=== PATIENT | female | born 1965 | race Caucasian/White ===

== ENCOUNTER → 2019-03-09 | Outpatient (CLI) | payer MEDICARE, OTHER ==
--- NOTE | 2019-03-14 13:39 | MR ---
MRI liver without and with contrast, MRCP HISTORY: Abnormal radiology exam Multiplanar multisequence and postcontrast images obtained through the abdomen following 10.5 cc gado linium intravenously. Three-dimensional reconstructions performed through the biliary system. It is n ot seen on MRI. There is no filling defect to suggest choledocholithiasis. Correlation to ultrasound abdomen dated 12/14/2018, CT chest 10/18/2010 The abnormality seen on ultrasound corresponds to a right adrenal mass measuring approximately 2.8 cm in greatest dimension and was seen on prior CT dated 10/18/2010. There is loss of signal on out of pha se imaging compatible with adrenal adenoma. The abnormality seen within the bile duct on ultrasound. Gallbladder is absent. Common bile duct is somewhat tortuous. Common bile duct is dilated likely due to postcholecystectomy change, susceptibili ty artifact is present due to surgical clips. There is no abnormal enhancement following contrast adm inistration. Pancreas, left adrenal gland, kidneys, and spleen are normal. No retroperitoneal adenopa thy. Aorta shows normal caliber. There is no ascites. IMPRESSION: Right adrenal adenoma. Suspect the findings on ultrasound in the region of the jose adrianna factual, no luminal filling defect seen on MRCP. Postop changes.
== END | disposition home or self-care (01) ==
LOC: RADMRIMAIN 08:07
PROVIDERS: ATTEND Internal Medicine Gastroenterology
DX: D35.01 Benign neoplasm of right adrenal gland (principal); Z98.890 Other specified postprocedural states
CPT/HCPCS: 74183; A9585

== ENCOUNTER → 2020-05-06 | Outpatient (CLI) | payer MEDICARE, OTHER ==
--- NOTE | 2020-05-06 13:27 | MR ---
EXAMINATION TYPE: MR knee LT wo con DATE OF EXAM: 05/06/2020 COMPARISON: Plain film 12/15/2019 HISTORY: L knee pain TECHNIQUE: Multiplanar, multisequence imaging of the left knee is performed without IV contrast. FINDINGS: MEDIAL MENISCUS: There is some abnormal increased signal within the posterior horn of the medial meni scus, question communication with the articular surface on sagittal image 24 LATERAL MENISCUS: Anterior and posterior horns are intact without tear. CRUCIATE LIGAMENTS: The anterior and posterior cruciate ligaments are intact and unremarkable. COLLATERAL LIGAMENTS: The medial collateral ligament and lateral collateral ligament complex are inta ct and unremarkable. EXTENSOR MECHANISM: Visualized quadriceps and patellar tendons are intact. EFFUSION: Suprapatellar joint effusion is present. POPLITEAL CYST: No popliteal/foote cyst. TRICOMPARTMENT SPACES: Maintained CARTILAGE: Grade 2 to grade III chondromalacia at the posterior patella. Suspect some grade II chondr omalacia medial compartment BONE MARROW SIGNAL: No focal abnormal marrow signal is appreciated. OTHER: There is clustered grapes type focus at the posterior aspect of the proximal tibia present mi dline, increased 2 to and T1 signal with some mild internal septation, heterogeneity, overall the les ion measures approximately 2.6 x 1.5 x 1.4 cm IMPRESSION: Osteoarthritis. Possible ganglion cyst posterior knee joint. There is some abnormal signal within the posterior horn the medial meniscus as described, difficult to exclude tear although findings suggest mucoid degeneration.
== END ==
LOC: RADMRIMAIN 12:05
PROVIDERS: ATTEND Orthopaedic Surgery
DX: M17.12 Unilateral primary osteoarthritis, left knee (principal); R93.7 Abnormal findings on diagnostic imaging of other parts of musculoskeletal system

== ENCOUNTER → 2020-06-08 | Outpatient (CLI) | payer MEDICARE, OTHER ==
--- NOTE | 2020-06-08 11:08 | MR ---
EXAMINATION TYPE: MR shoulder LT wo con DATE OF EXAM: 06/08/2020 10:35 AM COMPARISON: NONE HISTORY: LEFT SHOULDER PAIN TECHNIQUE: Multiplanar multispin echo imaging of the left shoulder was performed. FINDINGS: Rotator cuff : There is no complete or bursal/articular sided partial rotator cuff tear. The subscapu maryjane constituent of the rotator cuff is intact. Bursa: No bursal effusion or thickening is seen. Musculature: There is heterogeneity and thickening of the supraspinatus tendon compatible chronic ten dinopathy. Partial intrasubstance tears are noted without evidence for full-thickness tear. Remaining constituents of the rotator cuff are intact. Acromioclavicular joint : Moderate AC joint arthropathy with subacromial spurring resulting in modera te impingement. Osseous structures : There are no fractures or regions of abnormal bone marrow signal intensity. Long biceps tendon : The biceps tendon is normally situated within the bicipital groove. No complete or partial biceps tendon tear is present. Glenohumeral Joint fluid : There is no glenohumeral joint effusion. Cartilage and Bone : No focal hyaline cartilage defects are noted. No Hill-Sachs, reverse Hill-Sachs, or bony Bankart lesions are seen. Labrum : There are no SLAP or soft tissue Bankart lesions. No paralabral cysts are seen. OTHER FINDINGS : Fluid collection noted within the subcoracoid region measures approximately 3.4 x 2. 9 cm and could reflect a ganglion cyst. IMPRESSION: 1. There is heterogeneity and thickening of the supraspinatus tendon compatible chronic tendinopathy. Partial intrasubstance tears are noted without evidence for full-thickness tear. 2. Moderate subacromial impingement. 3. Subcoracoid fluid collection versus ganglion cyst.
== END | disposition home or self-care (01) ==
LOC: RADMRIMAIN 09:52
PROVIDERS: ATTEND Orthopaedic Surgery
DX: M25.812 Other specified joint disorders, left shoulder (principal)

== ENCOUNTER → 2020-09-13 | Day surgery (SDC) | payer MEDICARE, OTHER ==
[2020-09-09 16:05] VITALS: BMI 35.7
--- NOTE | 2020-09-12 21:30 | HP ---
HISTORY AND PHYSICAL CHIEF COMPLAINT: Left knee pain. HISTORY OF PRESENT ILLNESS: The patient is a 54-year-old female who presents with progressive left knee pain for the past several months. She is having stiffness and pain along with intermittent giving way. She is ambulating with a cane. She has tried medications, home exercises, and steroid injections without much relief. She notes it bothers her normal function and limits her activities. PAST MEDICAL HISTORY: Significant for arthritis, hypertension, hypercholesterolemia, heart disease, previous CVA, depression. PAST SURGICAL HISTORY: Significant for gallbladder removal, previous knee replacement, previous hip replacement, tonsillectomy. CURRENT MEDICATIONS: Aspirin, albuterol, Lopressor, Neurontin, Percocet, simvastatin, and trazodone. ALLERGIES: SHE HAS ALLERGIES TO PENICILLIN, IV CONTRAST DYE AND FLAGYL. FAMILY HISTORY: Significant for cancer. SOCIAL HISTORY: Negative for current tobacco or alcohol use. 16 POINT REVIEW OF SYSTEMS: Otherwise reviewed and is noncontributory. PHYSICAL EXAMINATION: On examination, the patient is approximately 5 foot 8, 235 pounds, endomorphic habitus. HEENT exam is nonfocal. NECK: Supple. She has painless passive motion of left hip. Straight leg raise is negative. Active motion left knee -10 to 110 degrees of flexion. She has a mild effusion. She is tender about the medial joint line. No lateral joint line. Collaterals are stable, Cristina is negative, Sima's elicits medial and lateral pain. Her distal neurovascular appears intact in the left lower extremity. IMPRESSION: 1. Left knee moderate medial compartment osteoarthrosis. 2. Left knee internal derangement, possible medial meniscal tear. RECOMMENDATIONS: I talked to the patient at length regarding her condition and treatment options. At this point, she remains quite symptomatic with pain and mechanical symptoms despite previous conservative measures. After thorough discussion, she opts to proceed with surgery. We will plan to proceed with left knee arthroscopy with possible partial medial meniscectomy. We will likely perform that as an outpatient procedure. MMODL / IJN: [id number] /
[~2020-09-13] MED LIST: CLINDAMYCIN 900 MG in DEXTROSE 5% IN WATER 50 ML IVPB PRN; DEXAMETHASONE SOD PHOSPHATE 4 MG/ML 1 ML VIAL IV ONE; EPINEPHRINE IRRIGATION ONE; EPINEPHrine (PF) 1 ML in SODIUM CHLORIDE 0.9% IRRIGATIO 3,000 ML IRRIGATION ONE; KETOROLAC 15 MG/ML 1 ML VIAL ONE; LACTATED RINGERS 1,000 ML IV SCH; LIDOCAINE 1% (10MG/ML) FOR IV START INTRADERMA PRN; LIDOCAINE 1% INJ 10MG/ML (20 ML MDV) ONE; MIDAZOLAM 2 MG/2 ML VIAL IV PRN; MIDAZOLAM 2 MG/2 ML VIAL ONE; PROPOFOL 10 MG/ML 20 ML VIAL IV ONE; SCOPOLAMINE 1.5MG/72HR PATCH TRANSDERM ONE; SODIUM CHLORIDE 0.9% IRRIGATION ONE; SUCCINYLCHOLINE CHLORIDE 100 MG/5 ML SYR IV ONE; fentaNYL (PF) 50 MCG/ML 2 ML AMP ONE
[2020-09-13] MEDS: ONDANSETRON 4 MG/2 ML VIAL IVP ONE ×2 (07:32→09:44)
[2020-09-13 07:33] LABS: Glucose,Whole Blood 110 mg/dL (75-99)
--- NOTE | 2020-09-13 09:16 | P.OP ---
Date of Procedure: 09/13/20 Preoperative Diagnosis: Left knee internal derangement Postoperative Diagnosis: Left knee posterior medial meniscal tear/grade 3 chondral injury distal central portion medial femoral condyle Procedure(s) Performed: The arthroscopic partial medial meniscectomy/medial femoral chondrectomy/microfracture medial femoral condyle Anesthesia: JOSSELYNA Surgeon: Jah Alvarado Estimated Blood Loss (ml): 10 Pathology: none sent Condition: stable Disposition: PACU Indications for Procedure: The patient's 54-year-old female presents with progressive left knee pain and mechanical symptoms despite attempted conservative measures. A discussion of the risks and benefits of continued conservative measures versus operative intervention was made with patient. She opted to proceed with surgery. Operative risks to include infection, neurovascular injury, development of blood clots, possible incomplete resolution of symptoms, possible worsening symptoms and need for subsequent procedures was discussed. Informed consent was obtained. Operative Findings: As below Description of Procedure: The patient was brought to the operating room, and after induction of general anesthesia examined the left knee. Collaterals were stable, Cristina was negative, and posterior drawer was negative. The left lower extremity was prepped and draped in a normal fashion. A superior lateral portal was made through a 3 mm skin incision superior and lateral to the patella. This was used for outflow. A lateral portal was made through a 5 mm vertical skin incision lateral to the patella tendon above the joint line. Diagnostic arthroscopy was performed. On inspection of the medial compartment complex tear involving the posterior horn of the medial meniscus in the white-red junction was noted. This was debrided back to stable base with straight baskets and a motorized shaver. Corresponding grade 3 chondral injury was noted involving the distal central portion medial femoral condyle. There was a loose chondral flap debrided back to stable base with a motorized shaver. This area measured 8 x 6 mm. Microfracture was performed utilizing a power pick breeching the subchondral surface of the bone marrow elements. On inspection of the notch, the anterior cruciate ligament appeared to be intact. On inspection of the lateral compartment, there was some chondral fibrillation however no loose chondral fragments were significant meniscal pathology. On inspection of the patellofemoral articulation, there again was chondral fibrillation however no loose chondral fragments.. The gutters were clear debris. The knee was then thoroughly irrigated. The portals were closed with Steri-Strips. A sterile dressing was applied in addition to a compression stocking. The patient was awoken from general anesthesia and transferred to recovery room in good condition. Blood loss was estimated at 10 mL. No complications were incurred.
[2020-09-13 09:18] VITALS: TEMP 97.1
[2020-09-13 09:28] LABS: Glucose,Whole Blood 144 mg/dL (75-99)
[2020-09-13] MEDS: HYDROmorphone 0.5 MG/0.5 ML SYRINGE IVP PRN ×4 (09:30→09:48)
[2020-09-13 10:15] VITALS: RESP 17
[2020-09-13 10:17] VITALS: BP 166/79; PULSE 90
== END | disposition home or self-care (01) ==
LOC: OR 06:49
PROVIDERS: ATTEND Orthopaedic Surgery
DX: M23.222 Derangement of posterior horn of medial meniscus due to old tear or injury, left knee (principal); M17.12 Unilateral primary osteoarthritis, left knee; E78.5 Hyperlipidemia, unspecified; E11.9 Type 2 diabetes mellitus without complications; I11.9 Hypertensive heart disease without heart failure; I69.354 Hemiplegia and hemiparesis following cerebral infarction affecting left non-dominant side; E78.00 Pure hypercholesterolemia, unspecified; K21.9 Gastro-esophageal reflux disease without esophagitis; F32.9 Major depressive disorder, single episode, unspecified; Z79.899 Other long term (current) drug therapy; Z88.0 Allergy status to penicillin; Z88.1 Allergy status to other antibiotic agents; Z91.041 Radiographic dye allergy status; Z79.82 Long term (current) use of aspirin; Z90.49 Acquired absence of other specified parts of digestive tract; Z96.659 Presence of unspecified artificial knee joint; Z96.649 Presence of unspecified artificial hip joint; Z98.890 Other specified postprocedural states; Z80.9 Family history of malignant neoplasm, unspecified
CPT/HCPCS: 29881; 29879; J0171 ×2; J2250; J1100; J2405; J2001; J3010; J1885; J0330; J2704; J1170

== ENCOUNTER 2020-09-27 08:45 | Emergency (ER) | payer MEDICARE, OTHER ==
[2020-09-27 08:52] VITALS: RESP 18; TEMP 97.6
[2020-09-27] MEDS ORDERED: SODIUM CHLORIDE 0.9% 1,000 ML IV STA (09:17)
[2020-09-27 09:30] LABS: Basophils % (A) 0 %; Eosinophils # (A) 0.1 k/uL (0-0.7); Eosinophils % (A) 1 %; HCT 38.4 % (34.0-46.0); HGB 12.6 gm/dL (11.4-16.0); Lymphocytes # (A) 1.1 k/uL (1.0-4.8); Lymphocytes % (A) 20 %; MCH 30.4 pg (25.0-35.0); MCHC 32.9 g/dL (31.0-37.0); MCV 92.5 fL (80.0-100.0); Monocytes # (A) 0.2 k/uL (0-1.0); Monocytes % (A) 4 %; Neutrophils # (A) 4.1 k/uL (1.3-7.7); Neutrophils % (A) 74 %; Platelet Count 265 k/uL (150-450); RBC 4.15 m/uL (3.80-5.40); RDW 13.2 % (11.5-15.5); WBC 5.6 k/uL (3.8-10.6)
[2020-09-27 09:40] LABS: Albumin 4.5 g/dL (3.5-5.0); Calcium 9.6 mg/dL (8.4-10.2); Potassium 3.3 mmol/L (3.5-5.1); Total Bilirubin 0.5 mg/dL (0.2-1.3); Total Protein 7.9 g/dL (6.3-8.2)
[2020-09-27 09:44] LABS: Appearance,Urine Clear (Clear); Bacteria,Urine Rare /hpf; Bilirubin,Urine Negative (Negative); Blood,Urine Trace (Negative); Color,Urine Yellow; Glucose,Urine (UA) Negative (Negative); Ketones,Urine 1+ (Negative); Leukocyte Esterase,Urine Negative (Negative); Mucus,Urine Many /hpf; Nitrite,Urine Negative (Negative); Protein,Urine 2+ (Negative); RBC,Urine 1 /hpf (0-5); Specific Gravity,Urine 1.038 (1.001-1.035); Squamous Epithelial Cell,Urine 3 /hpf (0-4); WBC,Urine 1 /hpf (0-5)
[2020-09-27] MEDS ORDERED: TRIMETHOBENZAMIDE 100 MG/ML 2 ML VIAL IM STA (09:48)
[2020-09-27] MEDS ORDERED: NITROFURANTOIN MONOHYD/M-CRYST 100 MG CAP PO STA (10:03)
--- NOTE | 2020-09-27 10:39 | XR ---
EXAMINATION TYPE: XR knee complete LT DATE OF EXAM: 09/27/2020 COMPARISON: 10/18/2010 HISTORY: Pain TECHNIQUE: Three-view right knee FINDINGS: Joint spaces preserved. No acute fracture or dislocation is evident. No joint effusion is e vident. Soft tissues appear normal. IMPRESSION: 1. Normal three-view left knee
--- NOTE | 2020-09-27 10:49 | ED ---
General Adult HPI - General Chief complaint: Recheck/Abnormal Lab/Rx Stated complaint: Nausea Time Seen by Provider: 09/27/20 08:50 Source: patient Mode of arrival: wheelchair Limitations: no limitations - History of Present Illness Initial comments: Patient is a 54-year-old female who is status post arthroscopic surgery on September [address] Tavera. She states that since the procedure she has had no appetite with nausea. Normally reports that she is treated with antibiotics prior to her surgeries as she has tendency to infections. Patient is concerned for infection to the left knee which is causing her symptoms of nausea. She has a follow-up appointment with her surgeon today. States that she called him yesterday with her reported complaints and they told her to come into the emergency department. She denies any headaches or visual changes. No neck pain. No fevers or chills. Denies vomiting. No abdominal pain or changes in her bowel or bladder habits. Denies sick contacts or similar symptoms. No other alleviating, precipitating or modifying factors - Related Data Home Medications Medication Instructions Recorded Confirmed Aspirin [Adult Low Dose Aspirin EC] 81 mg PO DAILY 09/09/20 09/27/20 Cyanocobalamin [Vitamin B-12] 500 mcg PO DAILY 09/09/20 09/27/20 Gabapentin [Neurontin] 800 mg PO TID 09/09/20 09/27/20 Linaclotide [Linzess] 145 mcg PO DAILY 09/09/20 09/27/20 Metoprolol Tartrate [Lopressor] 50 mg PO HS 09/09/20 09/27/20 Multivitamins, Thera [Multivitamin 1 tab PO DAILY 09/09/20 09/27/20 (formulary)] Pantoprazole [Protonix] 40 mg PO DAILY 09/09/20 09/27/20 Sertraline [Zoloft] 200 mg PO HS 09/09/20 09/27/20 Simvastatin [Zocor] 20 mg PO HS 09/09/20 09/27/20 busPIRone HCL [Buspar] 7.5 mg PO TID 09/09/20 09/27/20 metFORMIN HCL [Glucophage] 500 mg PO BID 09/09/20 09/27/20 oxyCODONE-APAP 10-325MG [Percocet 1 tab PO Q8HR PRN 09/09/20 09/27/20 10-325 mg] tiZANidine [Zanaflex] 12 mg PO Q8HR 09/09/20 09/27/20 traZODone HCL 50 mg PO HS 09/09/20 09/27/20 Diclofenac Epolamine [Diclofenac 1 patch TRANSDERM BID 09/27/20 09/27/20 Epolamine 1.3%] Hydrocortisone Cream 1 applic TOPICAL DAILY PRN 09/27/20 09/27/20 [Hydrocortisone 2.5% Cream] Ketoconazole 2% Cream [Nizoral 2%] 1 applic TOPICAL DAILY PRN 09/27/20 09/27/20 Metoprolol Tartrate [Lopressor] 25 mg PO DAILY 09/27/20 09/27/20 Triamcinolone 0.1% Ointment 1 applic TOPICAL BID PRN 09/27/20 09/27/20 [Kenalog 0.1% Ointment] amLODIPine [Norvasc] 2.5 mg PO DAILY 09/27/20 09/27/20 Previous Rx's Medication Instructions Recorded Nitrofurantoin Monohyd/M-Cryst 100 mg PO Q12HR #14 cap 09/27/20 [Macrobid] Ondansetron Odt [Zofran Odt] 4 mg PO Q8HR PRN #10 tab 09/27/20 Allergies Allergy/AdvReac Type Severity Reaction Status Date / Time erythromycin base Allergy Anaphylaxis Verified 09/27/20 09:54 Iodinated Contrast Media Allergy Anaphylaxis Verified 09/27/20 09:54 iodine Allergy Anaphylaxis Verified 09/27/20 09:54 metronidazole [From Flagyl] Allergy Anaphylaxis Verified 09/27/20 09:54 Penicillins Allergy Anaphylaxis Verified 09/27/20 09:54 IV dye Allergy Anaphylaxis Uncoded 09/27/20 08:53 Review of Systems ROS Statement: Those systems with pertinent positive or pertinent negative responses have been documented in the HPI. ROS Other: All systems not noted in ROS Statement are negative. Past Medical History Past Medical History: CVA/TIA, Diabetes Mellitus, GERD/Reflux, Hyperlipidemia, Hypertension, Osteoarthritis (OA), Sleep Apnea/CPAP/BIPAP, Thyroid Disorder Additional Past Medical History / Comment(s): Chronic neck pain, L sided wea kness, Goiter x 3 years. History of Any Multi-Drug Resistant Organisms: None Reported Past Surgical History: Cholecystectomy, Hysterectomy, Orthopedic Surgery Additional Past Surgical History / Comment(s): R hip surgery x 2, colonoscopy. rt knee Past Anesthesia/Blood Transfusion Reactions: Postoperative Nausea & Vomiting (PONV) Past Psychological History: Anxiety, Depression Smoking Status: Never smoker Past Alcohol Use History: None Reported Past Drug Use History: None Reported - Past Family History Mother Family Medical History: Deep Vein Thrombosis (DVT) Father Family Medical History: Cancer Additional Family Medical History / Comment(s): Throat General Exam Limitations: no limitations General appearance: alert, in no apparent distress Eye exam: Present: normal appearance, PERRL, EOMI. Absent: scleral icterus, conjunctival injection, periorbital swelling Respiratory exam: Present: normal lung sounds bilaterally. Absent: respiratory distress, wheezes, rales, rhonchi, stridor Cardiovascular Exam: Present: regular rate, normal rhythm, normal heart sounds. Absent: systolic murmur, diastolic murmur, rubs, gallop, clicks GI/Abdominal exam: Present: soft, normal bowel sounds. Absent: distended, tenderness, guarding, rebound, rigid Extremities exam: Present: other (left knee has 3 incisions with steri strips over the top. Incisions well healed. No drainage. No redness/swelling to the skin. No joint swelling. No painful ROM. 2+ DP and PT pulses) Course Vital Signs 09/27/20 09/27/20 08:50 11:10 Temperature 97.6 F Pulse Rate 120 H 78 Respiratory 18 18 Rate Blood Pressure 163/83 124/69 O2 Sat by Pulse 97 98 Oximetry Medical Decision Making - Medical Decision Making On arrival patient is placed into room 10. A thorough history and physical exam was performed. Evaluation of the patient's right knee demonstrates no overlying cellulitic changes. Patient has good range of motion. No drainage from the site. Recommended laboratory studies. Patient provided a urinalysis which demonstrates 1+ ketones and rare bacteria. X-rays performed of the left knee which demonstrates no acute findings. I called and discussed results with [facility]tiz [facility]. He does state that he would like the patient follow up in office this afternoon for her follow-up visit. Patient will be treated with macrobid and zofran. This is discussed with the patient. She agreed to the treatment plan. She is asked if she has any new or worsening symptoms that she return to the emergency room. Patient was then discharged home in stable condition - Lab Data Result diagrams: 09/27/20 09:14 09/27/20 09:14 Lab Results 09/27/20 09/27/20 09/27/20 Range/Units 09:14 09:14 09:14 WBC 5.6 (3.8-10.6) k/uL RBC 4.15 (3.80-5.40) m/uL Hgb 12.6 (11.4-16.0) gm/dL Hct 38.4 (34.0-46.0) % MCV 92.5 (80.0-100.0) fL MCH 30.4 (25.0-35.0) pg MCHC 32.9 (31.0-37.0) g/dL RDW 13.2 (11.5-15.5) % Plt Count 265 (150-450) k/uL MPV 7.0 Neutrophils % 74 % Lymphocytes % 20 % Monocytes % 4 % Eosinophils % 1 % Basophils % 0 % Neutrophils # 4.1 (1.3-7.7) k/uL Lymphocytes # 1.1 (1.0-4.8) k/uL Monocytes # 0.2 (0-1.0) k/uL Eosinophils # 0.1 (0-0.7) k/uL Basophils # 0.0 (0-0.2) k/uL Sodium 144 (137-145) mmol/L Potassium 3.3 L (3.5-5.1) mmol/L Chloride 110 H (98-107) mmol/L Carbon Dioxide 24 (22-30) mmol/L Anion Gap 10 mmol/L BUN 16 (7-17) mg/dL Creatinine 0.93 (0.52-1.04) mg/dL Est GFR (CKD-EPI)AfAm 81 (>60 ml/min/1.73 sqM) Est GFR (CKD-EPI)NonAf 70 (>60 ml/min/1.73 sqM) Glucose 141 H (74-99) mg/dL Calcium 9.6 (8.4-10.2) mg/dL Total Bilirubin 0.5 (0.2-1.3) mg/dL AST 27 (14-36) U/L ALT 11 (4-34) U/L Alkaline Phosphatase 105 (38-126) U/L Total Protein 7.9 (6.3-8.2) g/dL Albumin 4.5 (3.5-5.0) g/dL Amylase 57 (30-110) U/L Lipase 150 (23-300) U/L Urine Color Yellow Urine Appearance Clear (Clear) Urine pH 6.0 (5.0-8.0) Ur Specific [place] 1.038 H (1.001-1.035) Urine Protein 2+ H (Negative) Urine Glucose (UA) Negative (Negative) Urine Ketones 1+ H (Negative) Urine Blood Trace H (Negative) Urine Nitrite Negative (Negative) Urine Bilirubin Negative (Negative) Urine Urobilinogen 2.0 (<2.0) mg/dL Ur Leukocyte Esterase Negative (Negative) Urine RBC 1 (0-5) /hpf Urine WBC 1 (0-5) /hpf Ur Squamous Epith Cells 3 (0-4) /hpf Urine Bacteria Rare H (None) /hpf Urine Mucus Many H (None) /hpf Disposition Clinical Impression: Nausea Disposition: HOME SELF-CARE Condition: Stable Instructions (If sedation given, give patient instructions): Acute Nausea and Vomiting (ED) Additional Instructions: Please follow-up with the orthopedic surgeon at your appointment today. Take the antibiotics as directed. Return to the emergency room for any new or worsening symptoms Prescriptions: Nitrofurantoin Monohyd/M-Cryst [Macrobid] 100 mg PO Q12HR #14 cap Ondansetron Odt [Zofran Odt] 4 mg PO Q8HR PRN #10 tab PRN Reason: Nausea Is patient prescribed a controlled substance at d/c from ED?: No Referrals: Tima Castelan DO [Primary Care Provider] - 1-2 days Jah Alvarado MD [Family Provider] - 1-2 days Time of Disposition: 10:49
[2020-09-27 11:13] VITALS: BP 124/69; PULSE 78
== END 2020-09-27 11:13 | disposition home or self-care (01) ==
LOC: EC 08:45
DX: R11.0 Nausea (principal); L08.9 Local infection of the skin and subcutaneous tissue, unspecified; F32.9 Major depressive disorder, single episode, unspecified; F41.9 Anxiety disorder, unspecified; E11.9 Type 2 diabetes mellitus without complications; K21.9 Gastro-esophageal reflux disease without esophagitis; E78.5 Hyperlipidemia, unspecified; I10 Essential (primary) hypertension; M19.90 Unspecified osteoarthritis, unspecified site; E07.9 Disorder of thyroid, unspecified; G47.33 Obstructive sleep apnea (adult) (pediatric); Z79.84 Long term (current) use of oral hypoglycemic drugs; Z79.82 Long term (current) use of aspirin; Z79.899 Other long term (current) drug therapy; Z99.89 Dependence on other enabling machines and devices; Z88.0 Allergy status to penicillin; Z88.1 Allergy status to other antibiotic agents; Z91.041 Radiographic dye allergy status; Z86.73 Personal history of transient ischemic attack (TIA), and cerebral infarction without residual deficits; Z90.49 Acquired absence of other specified parts of digestive tract; Z90.710 Acquired absence of both cervix and uterus
CPT/HCPCS: 36415; 80053; 81001; 82150; 83690; 85025; 96360; 96361; 99283

== ENCOUNTER → 2020-10-22 | Outpatient (CLI) | payer MEDICARE, OTHER ==
--- NOTE | 2020-10-23 07:06 | US ---
EXAMINATION TYPE: US thyroid st tissue head/neck DATE OF EXAM: 10/22/2020 COMPARISON: MRI cervical spine December 22, 2011 CLINICAL HISTORY: E04.9 Multi nodular goiter. Hx thyroid nodules. Not on thyroid meds. Patient stat es having thyroid ultrasound before but not at this facility. GLAND SIZE: Right Lobe: 4.6 x 1.6 x 1.6 cm Overall Parenchyma: heterogenous Left Lobe: 3.4 x 1.4 x 1.7 cm Overall Parenchyma: heterogeneous Isthmus Thickness: 0.2 cm NODULES RIGHT: # of nodules measured on right: 3 1. 1.1 X 1.0 x 0.7 cm solid or almost completely solid, isoechoic nodule, which is wider than tall, with smooth margins, without echogenic foci. Prior size: No prior at this facility 2. 1.2 X 0.8 x 0.6 cm solid or almost completely solid, hypoechoic nodule, which is wider than tall , with smooth margins, without echogenic foci. Prior size: No prior at this facility 3. 0.8 X 0.8 x 0.5 cm lower/ right lateral isthmus solid or almost completely solid, hypoechoic nod ule, which is wider than tall, with smooth margins, without echogenic foci. Prior size: No prior at this facility LEFT: # of nodules measured on left: 2 1. 1.9 X 1.5 x 1.1 cm mixed cystic and solid, hypoechoic nodule, which is wider than tall, with smo oth margins, without echogenic foci. Prior size: No prior at this facility 2. 1.5 X 1.1 x 0.8 cm solid or almost completely solid, hypoechoic nodule, which is wider than tall , with smooth margins, with echogenic one foci. Prior size: No prior at this facility ISTHMUS: # of nodules measured in the isthmus: 0 Bilateral neck scanned, no evidence of lymphadenopathy. There is heterogeneous normal-sized thyroid with multiple thyroid nodules. A few are greater than 1 c m. IMPRESSION: As above. Most concerning nodule is 1.5 cm posterior hypoechoic solid left thyroid nodule with single macrocalcification, TR 4 lesion. Follow-up at 1,2,3 and 5 years advised 2017 ACR TI-RADS LEVEL: TR-RADS 4 - Moderately Suspicious: Follow if > 1 cm, FNA if > 1.5 cm *Highest TI-RADS level nodule reported
== END | disposition home or self-care (01) ==
LOC: RADUSWWP 15:31
PROVIDERS: ATTEND Internal Medicine Endocrinology, Diabetes & Metabolism
DX: E04.2 Nontoxic multinodular goiter (principal)
CPT/HCPCS: 76536

== ENCOUNTER → 2020-10-22 | Outpatient (CLI) | payer MEDICARE, OTHER ==
[2020-10-22 16:47] LABS: Basophils % (A) 0 %; Eosinophils # (A) 0.1 k/uL (0-0.7); Eosinophils % (A) 2 %; HCT 33.7 % (34.0-46.0); HGB 11.3 gm/dL (11.4-16.0); Lymphocytes # (A) 1.5 k/uL (1.0-4.8); Lymphocytes % (A) 27 %; MCH 31.5 pg (25.0-35.0); MCHC 33.5 g/dL (31.0-37.0); MCV 94.1 fL (80.0-100.0); Mean Platelet Volume 7.1; Monocytes # (A) 0.3 k/uL (0-1.0); Monocytes % (A) 5 %; Neutrophils # (A) 3.4 k/uL (1.3-7.7); Neutrophils % (A) 63 %; Platelet Count 243 k/uL (150-450); RBC 3.58 m/uL (3.80-5.40); RDW 13.3 % (11.5-15.5); WBC 5.4 k/uL (3.8-10.6)
[2020-10-22 17:07] LABS: Appearance,Urine Clear (Clear); Bacteria,Urine Occasional /hpf; Bilirubin,Urine Negative (Negative); Blood,Urine Negative (Negative); Color,Urine Yellow; Glucose,Urine (UA) Negative (Negative); Ketones,Urine Negative (Negative); Leukocyte Esterase,Urine Trace (Negative); Mucus,Urine Moderate /hpf; Nitrite,Urine Negative (Negative); PH, Urine 5.5 (5.0-8.0); Protein,Urine Trace (Negative); RBC,Urine 1 /hpf (0-5); Specific Gravity,Urine 1.031 (1.001-1.035); Squamous Epithelial Cell,Urine 4 /hpf (0-4); Urobilinogen,Urine <2.0 mg/dL (<2.0); WBC,Urine 4 /hpf (0-5)
[2020-10-23 02:04] LABS: % Iron Saturation 15.36 (12.00-45.00); African American GFR (CKD) 58.5 (60.0-200.0); Albumin 4.3 g/dL (3.80-4.90); Albumin/Globulin Ratio 1.87 (1.60-3.17); Anion Gap 8.3 mmol/L (4.00-12.00); BUN/Creat Ratio 24.17 Ratio (12.00-20.00); Calcium 9.3 mg/dL (8.7-10.3); Carbon Dioxide 28.7 mmol/L (21.6-31.8); Globulin 2.3 g/dL (1.6-3.3); Magnesium 1.6 mg/dL (1.5-2.4); Non-African American GFR(CKD) 50.5 (60.0-200.0); Phosphorus 4.4 mg/dL (2.4-5.1); Potassium 3.6 mmol/L (3.5-5.5); Total Bilirubin 0.3 mg/dL (0.2-1.2); Total Protein 6.6 g/dL (6.2-8.2); Uric Acid 5.9 mg/dL (2.9-7.7)
[2020-10-23 02:13] LABS: Ferritin 92.3 ng/mL (10.0-291.0)
== END | disposition home or self-care (01) ==
LOC: LABWHC1 15:36
PROVIDERS: ATTEND Internal Medicine
DX: N17.9 Acute kidney failure, unspecified (principal); D64.9 Anemia, unspecified; N39.0 Urinary tract infection, site not specified; N25.81 Secondary hyperparathyroidism of renal origin; E55.9 Vitamin D deficiency, unspecified; M10.9 Gout, unspecified
CPT/HCPCS: 36415; 80053; 81001; 82043; 82306; 82570; 82728; 83540; 83550; 83735; 83970; 84100; 84550; 85025

== ENCOUNTER → 2021-05-20 | Outpatient (CLI) | payer MEDICARE, OTHER ==
[2021-05-20 11:54] LABS: Appearance,Urine Clear (Clear); Bacteria,Urine Few /hpf; Bilirubin,Urine Negative (Negative); Blood,Urine Negative (Negative); Color,Urine Yellow; Glucose,Urine (UA) Negative (Negative); Ketones,Urine Negative (Negative); Leukocyte Esterase,Urine Small (Negative); Mucus,Urine Rare /hpf; Nitrite,Urine Negative (Negative); PH, Urine 5.5 (5.0-8.0); Protein,Urine Negative (Negative); Specific Gravity,Urine 1.013 (1.001-1.035); Squamous Epithelial Cell,Urine 3 /hpf (0-4); Urobilinogen,Urine <2.0 mg/dL (<2.0); WBC,Urine 2 /hpf (0-5)
[2021-05-20 14:46] LABS: HCT 34.4 % (37.2-46.3); HGB 11.1 g/dL (12.0-15.0); MCH 30.9 pg (27.0-32.0); MCHC 32.3 g/dL (32.0-37.0); MCV 95.8 fL (80.0-97.0); Mean Platelet Volume 9.5 fL (9.5-12.2); Platelet Count 237 X 10*3/uL (140-440); RBC 3.59 X 10*6/uL (4.10-5.20); WBC 5.24 X 10*3/uL (4.50-10.00)
[2021-05-20 19:06] LABS: Ferritin 70.5 ng/mL (10.0-291.0)
[2021-05-20 19:10] LABS: ALT <8 U/L (8-44); AST 19 U/L (13-35); African American GFR (CKD) 58.5 (60.0-200.0); Albumin/Globulin Ratio 1.68 (1.60-3.17); Alkaline Phosphatase 88 U/L (41-126); BUN/Creat Ratio 21.67 Ratio (12.00-20.00); Calcium 8.9 mg/dL (8.7-10.3); Carbon Dioxide 24.4 mmol/L (21.6-31.8); Chloride 108 mmol/L (96-109); Globulin 2.5 g/dL (1.6-3.3); Glucose 160 mg/dL (70-110); Iron 83 ug/dL (50-170); Magnesium 1.7 mg/dL (1.5-2.4); Non-African American GFR(CKD) 50.5 (60.0-200.0); Phosphorus 3.7 mg/dL (2.4-5.1); Potassium 3.6 mmol/L (3.5-5.5); Sodium 144 mmol/L (135-145); Total Bilirubin 0.4 mg/dL (0.3-1.2); Total Iron Binding Capacity 332 ug/dL (228-460); Total Protein 6.7 g/dL (6.2-8.2); Uric Acid 5.8 mg/dL (2.9-7.7)
== END | disposition home or self-care (01) ==
LOC: LABWHC1 09:27
PROVIDERS: ATTEND Nurse Practitioner Family
DX: N17.9 Acute kidney failure, unspecified (principal); D64.9 Anemia, unspecified; N39.0 Urinary tract infection, site not specified; N25.81 Secondary hyperparathyroidism of renal origin; E55.9 Vitamin D deficiency, unspecified; M10.9 Gout, unspecified
CPT/HCPCS: 36415; 80053; 81001; 82043; 82306; 82570; 82728; 83540; 83550; 83735; 83970; 84100; 84550; 85027

== ENCOUNTER → 2021-06-20 | Outpatient (CLI) | payer MEDICARE, OTHER ==
[2021-06-20 11:02] LABS: Potassium 4.3 mmol/L (3.5-5.1)
[2021-06-20 11:21] LABS: HCT 35.1 % (34.0-46.0); HGB 11.9 gm/dL (11.4-16.0); MCH 32.4 pg (25.0-35.0); MCHC 33.7 g/dL (31.0-37.0); MCV 96.1 fL (80.0-100.0); Mean Platelet Volume 7.3; Platelet Count 272 k/uL (150-450); RBC 3.65 m/uL (3.80-5.40); RDW 13.4 % (11.5-15.5); WBC 6.6 k/uL (3.8-10.6)
== END | disposition home or self-care (01) ==
LOC: LABPAT 09:45
PROVIDERS: ATTEND Internal Medicine Interventional Cardiology
DX: Z01.812 Encounter for preprocedural laboratory examination (principal); R94.39 Abnormal result of other cardiovascular function study
CPT/HCPCS: 36415; 80051; 82565; 84520; 85027

== ENCOUNTER 2021-07-04 06:07 | Day surgery (SDC) | payer MEDICARE, OTHER ==
[2021-07-01 11:47] VITALS: BMI 35.7
[~2021-07-04 06:07] MED LIST changes: +ALPRAZolam 0.25 MG TAB PO PRN; +ALPRAZolam 0.5 MG TAB PO PRN; -CLINDAMYCIN 900 MG in DEXTROSE 5% IN WATER 50 ML IVPB PRN; -DEXAMETHASONE SOD PHOSPHATE 4 MG/ML 1 ML VIAL IV ONE; -EPINEPHRINE IRRIGATION ONE; -EPINEPHrine (PF) 1 ML in SODIUM CHLORIDE 0.9% IRRIGATIO 3,000 ML IRRIGATION ONE; -KETOROLAC 15 MG/ML 1 ML VIAL ONE; -LACTATED RINGERS 1,000 ML IV SCH; -LIDOCAINE 1% (10MG/ML) FOR IV START INTRADERMA PRN; -LIDOCAINE 1% INJ 10MG/ML (20 ML MDV) ONE; -MIDAZOLAM 2 MG/2 ML VIAL IV PRN; -MIDAZOLAM 2 MG/2 ML VIAL ONE; +NITROGLYCERIN SL TABS 0.4 MG TAB SUBLINGUAL PRN; -PROPOFOL 10 MG/ML 20 ML VIAL IV ONE; -SCOPOLAMINE 1.5MG/72HR PATCH TRANSDERM ONE; +SODIUM CHLORIDE 0.9% 1,000 ML in EMPTY BAG 1 BAG IV ONE; -SODIUM CHLORIDE 0.9% IRRIGATION ONE; -SUCCINYLCHOLINE CHLORIDE 100 MG/5 ML SYR IV ONE; -fentaNYL (PF) 50 MCG/ML 2 ML AMP ONE
[2021-07-04] MEDS ORDERED: SODIUM CHLORIDE 0.9% 1,000 ML IV ONE (06:10)
[2021-07-04 06:38] LABS: Glucose,Whole Blood 121 mg/dL (75-99)
[2021-07-04 06:41] VITALS: RESP 16; TEMP 98.9
[2021-07-04] MEDS ORDERED: ASPIRIN 325 MG TAB PO ONE (07:00)
[2021-07-04] MEDS ORDERED: ATORVASTATIN 80 MG TAB PO ONE (07:00)
[2021-07-04] MEDS ORDERED: HEPARIN SODIUM,PORCINE 2,500 UNIT in SODIUM CHLORIDE 0.9% 250 ML IRRIGATION PRN (07:00)
[2021-07-04] MEDS ORDERED: HEPARIN SODIUM,PORCINE 10,000 UNIT in SODIUM CHLORIDE 0.9% 1,000 ML IRRIGATION PRN (07:00)
[2021-07-04] MEDS ORDERED: VERAPAMIL 2.5 MG/ML 2 ML AMP ONE (07:22)
[2021-07-04] MEDS ORDERED: fentaNYL (PF) 50 MCG/ML 2 ML AMP ONE (07:22)
[2021-07-04] MEDS ORDERED: LIDOCAINE 1% INJ 10MG/ML (20 ML MDV) ONE (07:22)
[2021-07-04] MEDS ORDERED: fentaNYL (PF) 50 MCG/ML 2 ML AMP IV ONE (07:32)
[2021-07-04] MEDS: MIDAZOLAM 2 MG/2 ML VIAL IV ONE ×2 (07:32→07:36)
[2021-07-04] MEDS ORDERED: LIDOCAINE 1% INJ 10MG/ML (20 ML MDV) SQ ONE (07:32)
[2021-07-04] MEDS ORDERED: VERAPAMIL SYRINGE (5 MG/10 ML) INTRAARTER ONE (07:34)
[2021-07-04] MEDS ORDERED: HEPARIN SODIUM 1,000 UN/ML (10ML VL) ONE (07:38)
[2021-07-04] MEDS ORDERED: HEPARIN SODIUM 1,000 UN/ML (10ML VL) IV ONE (07:41)
[2021-07-04] MEDS ORDERED: IOPAMIDOL-370 125ML BTL INJ ONE (07:42)
[2021-07-04] MEDS ORDERED: RX INFO: IV CONTRAST WAS GIVEN 1 EACH MISC MISCELLANE PRN (07:59)
[2021-07-04] MEDS ORDERED: NITROFURANTOIN MONOHYD/M-CRYST 100 MG CAP PO PRN (07:59)
[2021-07-04] MEDS ORDERED: oxyCODONE-APAP 10-325MG 1 EACH TAB PO PRN (07:59)
[2021-07-04] MEDS ORDERED: SODIUM CHLORIDE 0.9% 1,000 ML IV SCH (08:00)
[2021-07-04] MEDS ORDERED: ACETAMINOPHEN TAB 325 MG TAB ONE (08:23)
[2021-07-04] MEDS ORDERED: tiZANidine 4 MG TAB PO SCH (09:00)
[2021-07-04] MEDS ORDERED: CYANOCOBALAMIN 500 MCG TAB PO SCH (09:00)
[2021-07-04] MEDS ORDERED: PANTOPRAZOLE 40 MG TABLET PO SCH (09:00)
[2021-07-04] MEDS ORDERED: NON FORMULARY DRUG (Buspirone Hcl [Buspar] 7.5 MG Tablet) PO SCH (09:00)
--- NOTE | 2021-07-04 10:50 | LTR ---
July 04, 2021 To: Dr. Lock Regarding: Maynor Nickerson ([id number]) Dear Dr. Lock, I had the pleasure of performing cardiac catheterization on Mrs. Nickerson at [facility] on July 04, and a full copy of the procedure note will be forwarded to you. In brief, she was found to have no evidence of obstructive coronary artery disease with an elevated left ventricular end-diastolic pressure. At this time, I will continue medical therapy with the aggressive coronary risk modifications that have been initiated. Thank you again for allowing me to participate in this patient's care. Please feel free to call with any questions. Sincerely, Sharath Singh M.D. KRISTAL / REGINA: [id number] /
--- NOTE | 2021-07-04 10:50 | CC ---
CARDIAC CATHETERIZATION REPORT DATE OF PROCEDURE: 07/04/2021 Mrs. Nickerson is a 55-year-old female with known history of hypertension, hyperlipidemia and diabetes mellitus who has been complaining of progressive symptoms of dyspnea on exertion as well as episode of chest discomfort. She underwent myocardial perfusion imaging that revealed a drop in her ejection fraction compared to her echocardiogram with anterior wall defect. In view of that, recommendation was made regarding cardiac catheterization. The procedure as well as risks and complications were discussed with the patient, who was in full understanding and agreement. PROCEDURE DESCRIPTION: The patient was brought to the cath lab tech in a fasting, semi-sedated state after receiving fentanyl and Benadryl and achieving a moderate conscious sedated state. Using Xylocaine anesthesia and Seldinger technique, a 6-Hungarian sheath was introduced in the right radial artery. Selective right and left coronary angiography was performed using 5-Hungarian 3.5 bend right and left Marcella catheters. Multiple views were taken of the arteries, including hemiaxial views. The right Marcella was used to cross the aortic valve and the left ventricular end-diastolic pressure was calculated. Following that, catheter and sheath were removed. Hemostasis was obtained with deployment of a TR band. There was no immediate complication. Patient was returned to her room in stable condition. Of note, the patient received 5000 units of intravenous heparin as well as intra-arterial verapamil. FINDINGS: LEFT MAIN: This is a large-sized vessel bifurcating into left circumflex and left anterior descending coronary artery. Left main coronary artery has no evidence of high- grade stenosis. LEFT ANTERIOR DESCENDING ARTERY: This is a large-sized vessel reaching to the apex. It tapers down in the distal third, giving rise to a large diagonal branch in the mid segment. The left anterior descending artery as well as its branches have no evidence of obstructive coronary artery disease. LEFT CIRCUMFLEX: This is a nondominant large-sized vessel giving rise to 2 obtuse marginal branches. The first one is large in caliber. The left circumflex as well as its branches have no evidence of obstructive coronary artery disease. RIGHT CORONARY ARTERY: This is a large dominant vessel bifurcating into PDA and posterolateral segment and branches. The right coronary artery as well as its branches have no evidence of obstructive coronary artery disease. LEFT VENTRICULOGRAM: Left ventriculogram was not performed. HEMODYNAMICS: There was no gradient across the aortic valve. The left ventricular end- diastolic pressure was 24-28 mmHg. CONCLUSION: 1. Normal coronary arteries. 2. Right dominance. 3. Elevated left ventricular end-diastolic pressure. RECOMMENDATIONS: In view of findings and anatomy, I have recommended continued medical therapy with aggressive coronary risk modifications. Those findings and recommendations were discussed with the patient and her family, and they are in full understanding and agreement. Duration of sedation was 15 minutes. KRISTAL / REGINA: [id number] /
[2021-07-04 12:17] VITALS: BP 148/72; PULSE 74
[2021-07-04] MEDS ORDERED: GABAPENTIN 400 MG CAP PO SCH (16:00)
[2021-07-04] MEDS ORDERED: METOPROLOL TARTRATE 50 MG TAB PO SCH (21:00)
[2021-07-04] MEDS ORDERED: traZODone HCL 50 MG TAB PO SCH (21:00)
[2021-07-04] MEDS ORDERED: ATORVASTATIN 10 MG TAB PO SCH (21:00)
[2021-07-04] MEDS ORDERED: SERTRALINE 100 MG TAB PO SCH (21:00)
[2021-07-05] MEDS ORDERED: METOPROLOL TARTRATE 25 MG TAB PO SCH (09:00)
[2021-07-05] MEDS ORDERED: ASPIRIN 81 MG PO SCH (09:00)
[2021-07-05] MEDS ORDERED: amLODIPine 2.5 MG TAB PO SCH (09:00)
== END 2021-07-04 11:34 | disposition home or self-care (01) ==
LOC: CATHCVL 06:07
PROVIDERS: ATTEND Internal Medicine Interventional Cardiology
DX: I25.10 Atherosclerotic heart disease of native coronary artery without angina pectoris (principal)
CPT/HCPCS: 93458; 87635; C1894; C1769; J2250; J2001; J3010; J1644; Q9967

== ENCOUNTER 2021-08-07 09:23 | Day surgery (SDC) | payer MEDICARE, OTHER ==
[2021-08-07] MEDS ORDERED: ALPRAZolam 0.5 MG TAB PO STA (09:54)
[2021-08-07 11:24] VITALS: RESP 18; TEMP 98.4
[2021-08-07 11:25] VITALS: BP 104/60; PULSE 68
--- NOTE | 2021-08-07 14:09 | US ---
EXAMINATION TYPE: US FNA first lesion DATE OF EXAM: 08/07/2021 COMPARISON: Prior ultrasound 10/22/2011 HISTORY: Thyroid nodules. Maximal barrier technique was utilized. After informed consent, skin overlying the hypoechoic 1.3 cm x 0.9 cm right lobe thyroid nodule as confirmed with referring clinician's office was localized with ultrasound and the overlying skin prepped and draped. Ultrasound was utilized using sterile techniqu e. Lidocaine was used for local anesthesia. Five passes with a 25-gauge needle were made into the no dule and aspirated specimen was submitted to cytology. Following the procedure hemostasis achieved. Small local hematoma noted. The patient discharged in stable condition. IMPRESSION: STATUS POST ULTRASOUND GUIDED FINE NEEDLE ASPIRATION OF RIGHT LOBE THYROID NODULE, PATHOL OGY IS PENDING. THIS PROCEDURE WAS PERFORMED BY THE UNDERSIGNED.
== END 2021-08-07 11:25 | disposition home or self-care (01) ==
LOC: RADPROMAIN 09:23
PROVIDERS: ATTEND Internal Medicine Endocrinology, Diabetes & Metabolism
DX: E04.2 Nontoxic multinodular goiter (principal)
CPT/HCPCS: 10005; 88173; 88305

== ENCOUNTER → 2021-08-07 | Outpatient (CLI) | payer MEDICARE, OTHER ==
[2021-08-07 13:38] LABS: Appearance,Urine Clear (Clear); Bacteria,Urine Few /hpf; Bilirubin,Urine Negative (Negative); Blood,Urine Negative (Negative); Color,Urine Yellow; Glucose,Urine (UA) Negative (Negative); Hyaline Casts,Urine 6 /lpf (0-2); Ketones,Urine Negative (Negative); Leukocyte Esterase,Urine Small (Negative); Mucus,Urine Few /hpf; Nitrite,Urine Negative (Negative); PH, Urine 5.5 (5.0-8.0); Protein,Urine Negative (Negative); RBC,Urine 1 /hpf (0-5); Specific Gravity,Urine 1.019 (1.001-1.035); Squamous Epithelial Cell,Urine 3 /hpf (0-4); Urobilinogen,Urine <2.0 mg/dL (<2.0); WBC,Urine 1 /hpf (0-5)
[2021-08-07 19:19] LABS: Basophils # (A) 0.02 X 10*3/uL (0.00-0.10); Basophils % (A) 0.3 %; Eosinophils # (A) 0.16 X 10*3/uL (0.04-0.35); Eosinophils % (A) 2.8 %; HCT 33.6 % (37.2-46.3); HGB 10.9 g/dL (12.0-15.0); Lymphocytes # (A) 1.51 X 10*3/uL (0.90-5.00); Lymphocytes % (A) 26.4 %; MCH 31.4 pg (27.0-32.0); MCHC 32.4 g/dL (32.0-37.0); MCV 96.8 fL (80.0-97.0); Mean Platelet Volume 9.6 fL (9.5-12.2); Monocytes # (A) 0.31 X 10*3/uL (0.20-1.00); Monocytes % (A) 5.4 %; Platelet Count 256 X 10*3/uL (140-440); RBC 3.47 X 10*6/uL (4.10-5.20); RDW 12.8 % (11.5-14.5); WBC 5.72 X 10*3/uL (4.50-10.00)
[2021-08-07 20:49] LABS: % Iron Saturation 22.39 (12.00-45.00); ALT 7 U/L (8-44); AST 17 U/L (13-35); African American GFR (CKD) 67.2 (60.0-200.0); Albumin 4.1 g/dL (3.8-4.9); Albumin/Globulin Ratio 1.79 (1.60-3.17); Alkaline Phosphatase 87 U/L (41-126); BUN/Creat Ratio 24.02 Ratio (12.00-20.00); Blood Urea Nitrogen 25.7 mg/dL (9.0-27.0); Calcium 9.2 mg/dL (8.7-10.3); Carbon Dioxide 25.7 mmol/L (21.6-31.8); Chloride 106 mmol/L (96-109); Globulin 2.3 g/dL (1.6-3.3); Glucose 94 mg/dL (70-110); Iron 72 ug/dL (50-170); Magnesium 1.8 mg/dL (1.5-2.4); Phosphorus 3.7 mg/dL (2.4-5.1); Potassium 4.4 mmol/L (3.5-5.5); Sodium 143 mmol/L (135-145); Total Bilirubin <0.20 mg/dL (0.30-1.20); Total Iron Binding Capacity 323 ug/dL (228-460); Total Protein 6.4 g/dL (6.2-8.2); Uric Acid 6.2 mg/dL (2.9-7.7)
== END | disposition home or self-care (01) ==
LOC: LABWHC1 11:26
PROVIDERS: ATTEND Nurse Practitioner Family
DX: N17.9 Acute kidney failure, unspecified (principal); D64.9 Anemia, unspecified; N39.0 Urinary tract infection, site not specified; N25.81 Secondary hyperparathyroidism of renal origin; E55.9 Vitamin D deficiency, unspecified; M10.9 Gout, unspecified
CPT/HCPCS: 36415; 80053; 81001; 82043; 82306; 82570; 82728; 83540; 83550; 83735; 83970; 84100; 84550; 85025

== ENCOUNTER → 2022-01-01 | Outpatient (CLI) | payer MEDICARE, OTHER ==
--- NOTE | 2022-01-02 06:31 | MR ---
EXAMINATION TYPE: MR ankle RT wo con DATE OF EXAM: 01/01/2022 COMPARISON: None HISTORY: M76.821 posterior tibial tendonitis, Pain and swelling in Right Ankle and foot Multiplanar multiecho imaging of the right ankle without contrast. There is plantar and Achilles calcaneal spurring. Achilles tendon is intact. Plantar fascia appears i ntact. Ankle mortise is anatomic. There is mild increased ankle joint fluid. The collateral ligaments appear intact. There is some thinning and increased signal in a short segment of the posterior tibia l tendon at the posterior aspect of the medial malleolus. This is best seen on T2 sagittal image 8. T he peroneal tendons appear intact. There is no evidence for fracture. I see no focal bone destruction extensor tendons appear intact. IMPRESSION: There is partial tear of the posterior tibial tendon. Mild ankle joint effusion. Calcaneal spurring.
== END | disposition home or self-care (01) ==
LOC: RADMRIMAIN 12:40
PROVIDERS: ATTEND Podiatrist Foot & Ankle Surgery
DX: S96.811A Strain of other specified muscles and tendons at ankle and foot level, right foot, initial encounter (principal); M76.821 Posterior tibial tendinitis, right leg; M77.31 Calcaneal spur, right foot; M25.471 Effusion, right ankle; X58.XXXA Exposure to other specified factors, initial encounter

== ENCOUNTER → 2022-05-18 | Outpatient (CLI) | payer MEDICARE, OTHER ==
--- NOTE | 2022-05-18 16:18 | XR ---
EXAMINATION TYPE: XR foot limited bilateral DATE OF EXAM: 05/18/2022 COMPARISON: NONE HISTORY: 56-year-old female plantar surface pain bilaterally into the ankles TECHNIQUE: 2 views each side FINDINGS: Mild degenerative spurring at the MTP joints. Moderate-sized plantar heel spur on the right and small on the left. No acute fracture, subluxation, dislocation. IMPRESSION: 1. Moderate sized plantar heel spur on the right and small on the left. 2. Mild first MTP joint on either side. 3. No acute osseous abnormality seen.
== END | disposition home or self-care (01) ==
LOC: RADXRMAIN 13:15
PROVIDERS: ATTEND Internal Medicine
DX: M77.8 Other enthesopathies, not elsewhere classified (principal)

== ENCOUNTER → 2022-07-21 | Outpatient (CLI) | payer MEDICARE, OTHER ==
[2022-07-21 19:55] LABS: HCT 35.7 % (37.2-46.3); HGB 11.6 g/dL (12.0-15.0); MCH 31.4 pg (27.0-32.0); MCHC 32.5 g/dL (32.0-37.0); MCV 96.7 fL (80.0-97.0); Mean Platelet Volume 9.9 fL (9.5-12.2); NRBC Per 100 WBC 0 /100 WBCS (0.0-0.0); Platelet Count 251 X 10*3/uL (140-440); RBC 3.69 X 10*6/uL (4.10-5.20); RDW 12.5 % (11.5-14.5); WBC 5.93 X 10*3/uL (4.50-10.00)
[2022-07-21 20:33] LABS: Erythrocyte Sedimentation Rate 13 mm/Hr (0-30)
[2022-07-21 21:07] LABS: Blood Urea Nitrogen 24.7 mg/dL (9.0-27.0)
[2022-07-21 21:57] LABS: Protein, Total 6.7 g/dL (6.2-8.2)
[2022-07-21 22:45] LABS: C Reactive Protein <0.30 mg/dL (0.00-0.80)
[2022-07-22 12:07] LABS: Albumin 4.01 g/dL (3.80-4.90); Gamma Globulin 0.98 g/dL (0.70-1.50)
[2022-07-22 13:54] LABS: C-ANCA <1:20 Titer (<1:20)
== END | disposition home or self-care (01) ==
LOC: LABWHC1 12:28
PROVIDERS: ATTEND Psychiatry & Neurology Neurology
DX: G62.9 Polyneuropathy, unspecified (principal)
CPT/HCPCS: 36415; 82607; 83036; 84165; 84520; 85027; 85652; 86038; 86140; 86255; 86334; 86780

== ENCOUNTER → 2022-08-13 | Outpatient (CLI) | payer MEDICARE, OTHER ==
--- NOTE | 2022-08-13 16:22 | XR ---
EXAMINATION TYPE: XR tibia fibula 2 views LT DATE OF EXAM: 08/13/2022 Comparison: None Clinical History: 56-year-old female M79.605 Pain left leg Findings: No acute fracture. No periostitis or osteolysis. Knee and ankle articulations appear grossly intact. Impression: No acute osseous abnormality seen.
== END | disposition home or self-care (01) ==
LOC: RADXRMAIN 13:48
PROVIDERS: ATTEND Internal Medicine
DX: M79.605 Pain in left leg (principal)

== ENCOUNTER → 2022-10-13 | Outpatient (CLI) | payer MEDICARE, OTHER ==
[2022-10-13 15:48] LABS: Appearance,Urine Clear (Clear); Bilirubin,Urine Negative (Negative); Blood,Urine Negative (Negative); Color,Urine Yellow; Glucose,Urine (UA) Negative (Negative); Ketones,Urine Negative (Negative); Leukocyte Esterase,Urine Negative (Negative); Nitrite,Urine Negative (Negative); PH, Urine 5.5 (5.0-8.0); Protein,Urine Trace (Negative); Specific Gravity,Urine 1.033 (1.001-1.035); Urobilinogen,Urine <2.0 mg/dL (<2.0)
[2022-10-13 22:49] LABS: Basophils # (A) 0.03 X 10*3/uL (0.00-0.10); Basophils % (A) 0.3 %; Eosinophils # (A) 0.11 X 10*3/uL (0.04-0.35); Eosinophils % (A) 1.2 %; HCT 36.2 % (37.2-46.3); Immature Grans, Automated 0.7 %; Lymphocytes % (A) 13.3 %; MCHC 33.1 g/dL (32.0-37.0); MCV 93.5 fL (80.0-97.0); Mean Platelet Volume 9.4 fL (9.5-12.2); Monocytes # (A) 0.31 X 10*3/uL (0.20-1.00); Monocytes % (A) 3.4 %; NRBC Per 100 WBC 0 /100 WBCS (0.0-0.0); Neutrophils # (A) 7.32 X 10*3/uL (1.80-7.70); Neutrophils % (A) 81.1 %; Platelet Count 279 X 10*3/uL (140-440); RBC 3.87 X 10*6/uL (4.10-5.20); RDW 12.5 % (11.5-14.5); WBC 9.03 X 10*3/uL (4.50-10.00)
[2022-10-13 23:20] LABS: African American GFR (CKD) 64.5 (60.0-200.0); Albumin 4.5 g/dL (3.8-4.9); Albumin/Globulin Ratio 1.8 (1.60-3.17); Anion Gap 11.9 mmol/L (10.00-18.00); Blood Urea Nitrogen 25.3 mg/dL (9.0-27.0); Calcium 9.7 mg/dL (8.7-10.3); Carbon Dioxide 26.1 mmol/L (20.0-27.5); Globulin 2.5 g/dL (1.6-3.3); Magnesium 1.8 mg/dL (1.5-2.4); Non-African American GFR(CKD) 55.7 (60.0-200.0); Phosphorus 3.4 mg/dL (2.4-5.1); Potassium 4.8 mmol/L (3.5-5.5); Total Bilirubin 0.2 mg/dL (0.30-1.20); Uric Acid 4.9 mg/dL (2.9-7.7)
[2022-10-13 23:44] LABS: % Iron Saturation 20.9 (12.00-45.00)
== END | disposition home or self-care (01) ==
LOC: LABWHC1 14:29
PROVIDERS: ATTEND Nurse Practitioner Family
DX: N25.81 Secondary hyperparathyroidism of renal origin (principal); D64.9 Anemia, unspecified; N39.0 Urinary tract infection, site not specified; E55.9 Vitamin D deficiency, unspecified; M10.9 Gout, unspecified; N18.31 Chronic kidney disease, stage 3a
CPT/HCPCS: 36415; 80053; 81003; 82043; 82306; 82570; 82728; 83540; 83550; 83735; 83970; 84100; 84550; 85025

== ENCOUNTER → 2022-10-27 | Outpatient (CLI) | payer MEDICARE, OTHER ==
--- NOTE | 2022-10-27 13:06 | US ---
EXAMINATION TYPE: US kidneys/renal and bladder DATE OF EXAM: 10/27/2022 COMPARISON: NONE CLINICAL HISTORY: 57-year-old female N18.31 CHRONIC KIDNEY DISEASE, STAGE 3A. CKD 3 TECHNIQUE: Multiple sonographic images of the kidneys and bladder are obtained. FINDINGS: EXAM MEASUREMENTS: Right Kidney: 10.7 x 5.1 x 4.0 cm Left Kidney: 11.1 x 6.0 x 4.7 cm Right Kidney: No hydronephrosis or masses seen Left Kidney: No hydronephrosis or masses seen Bladder: Anechoic Bilateral Jets seen: Left only Slightly echogenic liver parenchyma could reflect mild fatty infiltration. IMPRESSION: No hydronephrosis. Slightly echogenic liver parenchyma may reflect mild fatty infiltration of the amy er.
== END | disposition home or self-care (01) ==
LOC: RADUSWWP 10:10
PROVIDERS: ATTEND Internal Medicine Nephrology
DX: K76.89 Other specified diseases of liver (principal); N18.31 Chronic kidney disease, stage 3a
CPT/HCPCS: 76770

== ENCOUNTER → 2023-03-19 | Outpatient (CLI) | payer MEDICARE, OTHER ==
[2023-03-21 09:24] LABS: ALT 8 U/L; AST 15 U/L; Albumin 4.4 d/dL; Alkaline Phosphatase 85 U/L; BUN/Creat Ratio 20.36 Ratio; Blood Urea Nitrogen 22.4 mg/dL; Calcium 9.6 mg/dL; Chloride 106 mmol/L; Globulin 2.2 d/dL; Glucose 89 mg/dL; Potassium 4.5 mmol/L; Sodium 142 mmol/L; Total Bilirubin <0.2 mg/dL; Total Protein 6.6 d/dL
[2023-03-22 09:57] LABS: Non-African American GFR(CKD) 55.5
== END | disposition home or self-care (01) ==
LOC: LABWHC1 15:25
PROVIDERS: ATTEND Nurse Practitioner Adult Health
DX: N18.9 Chronic kidney disease, unspecified (principal); R60.0 Localized edema
CPT/HCPCS: 36415; 80053; 83880

== ENCOUNTER → 2023-08-12 | Outpatient (CLI) | payer MEDICARE, OTHER ==
[2023-08-12 16:40] LABS: ALT 7 U/L (8-44); AST 17 U/L (13-35); Albumin 4.1 d/dL (3.8-4.9); Albumin/Globulin Ratio 1.71 Ratio (1.60-3.17); Alkaline Phosphatase 84 U/L (41-126); Blood Urea Nitrogen 22.3 mg/dL (9.0-27.0); Calcium 9.6 mg/dL (8.7-10.3); Carbon Dioxide 28.9 mmol/L (21.6-31.8); Chloride 105 mmol/L (96-109); Chol/HDL Ratio 5.57 Ratio; Globulin 2.4 d/dL (1.6-3.3); Glucose 106 mg/dL (70-110); LDL Cholesterol,Calculated 105.8 mg/dL (0.0-131.0); Potassium 4.7 mmol/L (3.5-5.5); Sodium 144 mmol/L (135-145); Total Bilirubin 0.2 mg/dL (0.3-1.2); Total Protein 6.5 d/dL (6.2-8.2)
== END | disposition home or self-care (01) ==
LOC: LABWHC1 09:52
PROVIDERS: ATTEND Internal Medicine Interventional Cardiology
DX: E78.2 Mixed hyperlipidemia (principal)
CPT/HCPCS: 36415; 80053; 80061

== ENCOUNTER → 2023-10-21 | Outpatient (CLI) | payer MEDICARE, OTHER ==
[2023-10-21 15:49] LABS: HCT 34.7 % (37.2-46.3); HGB 11.2 g/dL (12.0-15.0); MCH 30.6 pg (27.0-32.0); MCHC 32.3 g/dL (32.0-37.0); MCV 94.8 FL (80.0-97.0); Mean Platelet Volume 9.8 FL (9.5-12.2); NRBC Per 100 WBC 0 X 10*3/uL (0.00-0.01); Platelet Count 215 X 10*3/uL (140-440); RBC 3.66 X 10*6/uL (4.10-5.20); RDW 12.3 % (11.5-14.5); WBC 7.74 X 10*3/uL (4.50-10.00)
[2023-10-21 16:29] LABS: Magnesium 1.9 mg/dL (1.5-2.4)
[2023-10-21 16:30] LABS: ALT 7 U/L (8-44); AST 15 U/L (13-35); Albumin 4.3 g/dL (3.8-4.9); Albumin/Globulin Ratio 1.65 Ratio (1.60-3.17); Alkaline Phosphatase 94 U/L (41-126); Blood Urea Nitrogen 24.8 mg/dL (9.0-27.0); Calcium 9.2 mg/dL (8.7-10.3); Carbon Dioxide 26.1 mmol/L (21.6-31.8); Chloride 106 mmol/L (96-109); Globulin 2.6 g/dL (1.6-3.3); Glucose 84 mg/dL (70-110); Iron 39 UG/DL (50-170); Phosphorus 3.7 mg/dL (2.4-5.1); Potassium 4.3 mmol/L (3.5-5.5); Sodium 142 mmol/L (135-145); Total Bilirubin 0.2 mg/dL (0.3-1.2); Total Iron Binding Capacity 325 UG/DL (228-460); Total Protein 6.9 g/dL (6.2-8.2); Uric Acid 5.2 mg/dL (2.9-7.7)
[2023-10-21 19:11] LABS: Appearance,Urine Turbid (Clear); Bilirubin,Urine Negative (Negative); Blood,Urine Negative (Negative); Color,Urine Yellow (Yellow); Ketones,Urine Trace (Negative); Nitrite,Urine Negative (Negative); PH, Urine 5.5; Specific Gravity,Urine 1.028 (1.001-1.030)
[2023-10-21 19:41] LABS: Bacteria,Urine None Seen (None Seen); Calcium Oxalate Crystals,Urine Present (None Seen)
[2023-10-21 21:31] LABS: Microalbumin Creatinine Ratio <5 mg/g Cr (0-30)
== END | disposition home or self-care (01) ==
LOC: LABWHC1 11:41
PROVIDERS: ATTEND Internal Medicine
DX: N18.31 Chronic kidney disease, stage 3a (principal); D63.1 Anemia in chronic kidney disease; N39.0 Urinary tract infection, site not specified; E55.9 Vitamin D deficiency, unspecified; N25.81 Secondary hyperparathyroidism of renal origin; M10.9 Gout, unspecified; R80.9 Proteinuria, unspecified
CPT/HCPCS: 36415; 80053; 81001; 82043; 82306; 82570; 82728; 83540; 83550; 83735; 83970; 84100; 84550; 85027

== ENCOUNTER → 2023-12-15 | Outpatient (CLI) | payer MEDICARE, OTHER ==
--- NOTE | 2023-12-15 11:24 | CT ---
EXAMINATION TYPE: CT sacrum wo con DATE OF EXAM: 12/15/2023 COMPARISON: None HISTORY: 58-year-old female M53.3 sacrum/coccyx pain TECHNIQUE: Contiguous axial scanning of the sacrum/coccyx without IV contrast. Coronal and sagittal r econstructions performed. CT DLP: 656 mGycm Automated exposure control for dose reduction was used. FINDINGS: Partially visualized right total hip arthroplasty. The acetabular cup component appears well seated t gisselle both acetabular screw tips extend beyond the posterior iliac bone cortex. The more lateral scre w prominently into the gluteus minimus muscle, axial image 43 and coronal image 33. Some stimulator leads are partially visualized posterior lower back. Suspected transitional lumbosacral segment. We are denoting this as a lumbarized S1. There is degenerative disc disease with disc space narrowing and bulging disc at L5-S1. Bulging disc also present at L4-L5. Additional facet arthropathy lower lumbar spine. This can contributes to moderate left and mild right neuroforaminal stenosis at L5-S1. Also mild on t he right at L4-L5. A left lateral disc osteophyte complex at L5-S1 abuts the extraforaminal left L5 n erve root. Some nonspecific ossification along the left iliolumbar ligament. SI joints appear symmetric and intact. No acute fracture seen. No subarticular erosions. No displaced or angulated tailbone fracture identified. Uterus surgically absent. Bladder collapsed. Extensive metal artifact limiting detailed assessment of the intrapelvic structures. IMPRESSION: 1. PARTIALLY VISUALIZED RIGHT HIP REPLACEMENT. THE ACETABULAR CUP SCREW TIPS EXTEND BEYOND THE PREPRESS PROOFER IOR ILIAC CORTEX, ESPECIALLY THE LATERAL SCREW WHICH EXTENDS INTO THE GLUTEUS MINIMUS MUSCLE. QUESTIO NABLE CLINICAL SIGNIFICANCE. 2. Transitional lumbosacral segment being denoted as a lumbarized S1. Spondylotic change lower lumbar spine likely contributes to a moderate left neuroforaminal stenosis at L5-S1. Left lateral disc oste ophyte complex here also abuts the extraforaminal left L5 nerve root. 3. Some incidental partial ossification along the left iliolumbar ligament. 4. Otherwise, no specific abnormality of the SI joints, sacrum, or coccyx
--- NOTE | 2023-12-15 14:35 | XR ---
EXAMINATION TYPE: XR soft tissue neck DATE OF EXAM: 12/15/2023 COMPARISON: None HISTORY: Otitis media TECHNIQUE: 2 view soft tissue neck FINDINGS: Prevertebral space is normal. Disc heights appear preserved. Vertebral body heights are pre served. Epiglottis is unremarkable. Posterior oral pharynx is unremarkable. Subglottic airway is unre markable. IMPRESSION: 1. Unremarkable soft tissue neck
== END | disposition home or self-care (01) ==
LOC: RADCTMAIN 09:32
PROVIDERS: ATTEND Physical Medicine & Rehabilitation Brain Injury Medicine
DX: M25.78 Osteophyte, vertebrae (principal); M67.88 Other specified disorders of synovium and tendon, other site; H66.90 Otitis media, unspecified, unspecified ear; Z96.641 Presence of right artificial hip joint
CPT/HCPCS: 70360; 72192

== ENCOUNTER → 2023-12-27 | Outpatient (CLI) | payer MEDICARE, OTHER ==
[2023-12-27 18:53] LABS: ALT 6 U/L (8-44); AST 18 U/L (13-35); LDL Cholesterol,Calculated 95.6 mg/dL (0.0-131.0)
== END | disposition home or self-care (01) ==
LOC: LABWHC1 12:53
PROVIDERS: ATTEND Internal Medicine Interventional Cardiology
DX: E78.2 Mixed hyperlipidemia (principal)
CPT/HCPCS: 36415; 80061; 84450; 84460

== ENCOUNTER 2024-03-20 12:20 | Emergency (ER) | payer MEDICARE, OTHER ==
[2024-03-20 13:31] VITALS: RESP 18; TEMP 98
--- NOTE | 2024-03-20 13:31 | ED ---
Upper Extremity HPI - General Chief Complaint: Extremity Injury, Upper Stated Complaint: L arm issue Time Seen by Provider: 03/20/24 12:38 Source: patient, RN notes reviewed Mode of arrival: ambulatory Limitations: no limitations - History of Present Illness Initial Comments: This is a 58-year-old female presents emergency department chief complaint of l eft elbow pain over the past few weeks. She denies any trauma or recent injury to the area. States that the elbow has been stiff with radiation into the hand. Denies paresthesias. States that the elbow feels weak and has pain on range of motion. She has a history of bilateral carpal tunnel which she wears wrist splints for. Follows with Dr. Booker due to chronic back pain, and is prescribed percocet and she took one at 0900 today. - Related Data Home Medications Medication Instructions Recorded Confirmed Aspirin [Adult Low Dose Aspirin EC] 81 mg PO DAILY 09/09/20 08/07/21 Cyanocobalamin [Vitamin B-12] 500 mcg PO DAILY 09/09/20 08/07/21 Gabapentin [Neurontin] 800 mg PO TID 09/09/20 08/07/21 Linaclotide [Linzess] 290 mcg PO DAILY 09/09/20 08/07/21 Metoprolol Tartrate [Lopressor] 75 mg PO HS 09/09/20 08/07/21 Multivitamins, Thera [Multivitamin 1 tab PO DAILY 09/09/20 08/07/21 (formulary)] Pantoprazole [Protonix] 40 mg PO DAILY 09/09/20 08/07/21 Sertraline [Zoloft] 200 mg PO HS 09/09/20 08/07/21 Simvastatin [Zocor] 20 mg PO HS 09/09/20 08/07/21 busPIRone HCL [Buspar] 7.5 mg PO TID 09/09/20 08/07/21 metFORMIN HCL [Glucophage] 500 mg PO BID 09/09/20 08/07/21 oxyCODONE-APAP 10-325MG [Percocet 1 tab PO Q8HR PRN 09/09/20 08/07/21 10-325 mg] tiZANidine [Zanaflex] 6 mg PO TID 09/09/20 08/07/21 traZODone HCL 50 mg PO HS 09/09/20 08/07/21 Hydrocortisone Cream 1 applic TOPICAL DAILY PRN 09/27/20 08/07/21 [Hydrocortisone 2.5% Cream] Ketoconazole 2% Cream [Nizoral 2%] 1 applic TOPICAL DAILY PRN 09/27/20 08/07/21 Metoprolol Tartrate [Lopressor] 25 mg PO DAILY 09/27/20 08/07/21 Triamcinolone 0.1% Ointment 1 applic TOPICAL BID PRN 09/27/20 08/07/21 [Kenalog 0.1% Ointment] amLODIPine [Norvasc] 2.5 mg PO DAILY 09/27/20 08/07/21 Diclofenac Sodium Gel [Voltaren 4 gm TOPICAL TID 07/01/21 08/07/21 Gel] Previous Rx's Medication Instructions Recorded Ondansetron Odt [Zofran Odt] 4 mg PO Q8HR PRN #10 tab 09/27/20 Allergies Allergy/AdvReac Type Severity Reaction Status Date / Time erythromycin base Allergy Anaphylaxis Verified 03/20/24 12:41 Iodinated Contrast Media Allergy Anaphylaxis Verified 03/20/24 12:41 iodine Allergy Anaphylaxis Verified 03/20/24 12:41 metronidazole [From Flagyl] Allergy Anaphylaxis Verified 03/20/24 12:41 Penicillins Allergy Anaphylaxis Verified 03/20/24 12:41 IV dye Allergy Anaphylaxis Uncoded 03/20/24 12:41 Review of Systems ROS Statement: Those systems with pertinent positive or pertinent negative responses have been documented in the HPI. ROS Other: All systems not noted in ROS Statement are negative. Past Medical History Past Medical History: CVA/TIA, Diabetes Mellitus, GERD/Reflux, Hyperlipidemia, Hypertension, Osteoarthritis (OA), Sleep Apnea/CPAP/BIPAP, Thyroid Disorder Additional Past Medical History / Comment(s): Chronic neck pain, L sided weakness, Goiter x 3 years. History of Any Multi-Drug Resistant Organisms: None Reported Past Surgical History: Cholecystectomy, Hysterectomy, Orthopedic Surgery Additional Past Surgical History / Comment(s): R hip surgery x 2, colonoscopy. rt knee Past Anesthesia/Blood Transfusion Reactions: Postoperative Nausea & Vomiting (PONV) Past Psychological History: Anxiety, Depression Smoking Status: Never smoker Past Alcohol Use History: None Reported Past Drug Use History: None Reported - Past Family History Mother Family Medical History: Deep Vein Thrombosis (DVT) Father Family Medical History: Cancer Additional Family Medical History / Comment(s): Throat General Exam Limitations: no limitations General appearance: alert, in no apparent distress Head exam: Present: atraumatic, normocephalic, normal inspection Eye exam: Present: normal appearance, PERRL, EOMI. Absent: scleral icterus, conjunctival injection, periorbital swelling ENT exam: Present: normal exam, mucous membranes moist Neck exam: Present: normal inspection. Absent: tenderness, meningismus, lymphadenopathy Respiratory exam: Present: normal lung sounds bilaterally. Absent: respiratory distress, wheezes, rales, rhonchi, stridor Cardiovascular Exam: Present: regular rate, normal rhythm, normal heart sounds. Absent: systolic murmur, diastolic murmur, rubs, gallop, clicks GI/Abdominal exam: Present: soft, normal bowel sounds. Absent: distended, tenderness, guarding, rebound, rigid Left Upper Arm exam: Present: normal inspection, full ROM. Absent: tenderness, swelling Elbow exam: Present: full ROM (unable to complete full active, passive ROM intact), tenderness (anerior and posterior elbow), swelling (mild edema over the lateral forearm). Absent: abrasion, laceration, ecchymosis, deformity Forearm Wrist exam: Present: normal inspection, full ROM. Absent: swelling Hand Wrist exam: Present: normal inspection Neuro motor exam: Present: wrist extension intact, thumb opposition intact Neurosensory exam: Present: 2-point discrimination Vascular: Present: normal capillary refill. Absent: vascular compromise Back exam: Present: normal inspection Neurological exam: Present: alert, oriented X3, CN II-XII intact Psychiatric exam: Present: normal affect, normal mood Skin exam: Present: warm, dry, intact, normal color. Absent: rash Course Vital Signs 03/20/24 03/20/24 12:36 15:53 Temperature 98.0 F Pulse Rate 78 73 Respiratory 18 18 Rate Blood Pressure 146/87 192/93 O2 Sat by Pulse 98 96 Oximetry Medical Decision Making - Medical Decision Making Was pt. sent in by a medical professional or institution (, PA, RELAY ASSOCIATE, urgent care, hospital, or fpc...) When possible be specific @ -No Did you speak to anyone other than the patient for history (EMS, parent, family, police, friend...)? What history was obtained from this source @ -No Did you review nursing and triage notes (agree or disagree)? Why? @ -I reviewed and agree with nursing and triage notes Were old charts reviewed (outside hosp., previous admission, EMS record, old EKG, old radiological studies, urgent care reports/EKG's, fpc records)? Report findings @ -No old charts were reviewed Differential Diagnosis (chest pain, altered mental status, abdominal pain women, abdominal pain men, vaginal bleeding, weakness, fever, dyspnea, syncope, head ache, dizziness, GI bleed, back pain, seizure, CVA, palpatations, mental health, musculoskeletal)? @ -Differential Musculoskeletal Muscular strain, contusion, ligament sprain, fracture, arthritis, septic arthritis, bursitis, cellulitis, muscle spasm, nerve compression, DVT, arterial occlusion, herpes zoster, electrolyte abnormality, tumor.... This is not meant to be in all inclusive list EKG interpreted by me (3pts min.). @ -None X-rays interpreted by me (1pt min.). @ -xray of the left elbow reveals no acute osseous abnormality seen CT interpreted by me (1pt min.). @ -None done U/S interpreted by me (1pt. min.). @ -None done What testing was considered but not performed or refused? (CT, X-rays, U/S, labs)? Why? @ -None What meds were considered but not given or refused? Why? @ -None Did you discuss the management of the patient with other professionals (professionals i.e. , PA, RELAY ASSOCIATE, lab, RT, psych nurse, social work assistant, beater head, teacher, landing signal officer, telephonic nurse case manager)? Give summary @ -No Was smoking cessation discussed for >3mins.? @ -No Was critical care preformed (if so, how long)? @ -No Were there social determinants of health that impacted care today? How? (Homelessness, low income, unemployed, alcoholism, drug addiction, transportation, low edu. Level, literacy, decrease access to med. care, [facility], rehab)? @ -No Was there de-escalation of care discussed even if they declined (Discuss DNR or withdrawal of care, Hospice)? DNR status @ -No What co-morbidities impacted this encounter? (DM, HTN, Smoking, COPD, CAD, Cancer, CVA, ARF, Chemo, Hep., AIDS, mental health diagnosis, sleep apnea, morbid obesity)? @ -None Was patient admitted / discharged? Hospital course, mention meds given and route, prescriptions, significant lab abnormalities, going to OR and other pertinent info. @ -Discharged. 58-year-old female with left elbow pain. On examination passive range of motion is able to be completed of the elbow. There are no musculoskeletal weakness or changes in sensation on exam. Patient will be sent for a x-ray of the elbow in addition to provided with pain medication. On reevaluation patient states that pain has somewhat improved. X-ray unremarkable for acute findings. Patient will be discharged home with a Ashkan wrap over the elbow and manage and continue Tylenol Motrin at home for symptomatic relief. Additionally due to patient's history of carpal tunnel recommend that patient wear her wrist splints more frequently to minimize further discomfort of the wrist and elbow. Patient verbalized understanding. Stable for discharge. All questions answered at bedside. Recommend the patient follows up with her primary care provider within the next week for further evaluation. Case discussed with Dr. Love Undiagnosed new problem with uncertain prognosis? @ -No Drug Therapy requiring intensive monitoring for toxicity (Heparin, Nitro, Insulin, Cardizem)? @ -No Were any procedures done? @ -No Diagnosis/symptom? @ -Elbow pain, tendinitis Acute, or Chronic, or Acute on Chronic? @ -acute Uncomplicated (without systemic symptoms) or Complicated (systemic symptoms)? @ -Complicated Side effects of treatment? @ -No Exacerbation, Progression, or Severe Exacerbation? @ -No Poses a threat to life or bodily function? How? (Chest pain, [place], [place], pneumonia, PE, COPD, DKA, ARF, appy, cholecystitis, CVA, Diverticulitis, Homicidal, Emely cidal, threat to staff... and all critical care pts) @ -unikely Disposition Clinical Impression: Elbow pain, left, Carpal tunnel syndrome, Tendonitis of elbow, left Disposition: HOME SELF-CARE Condition: Good Instructions (If sedation given, give patient instructions): Elbow Sprain (ED) Additional Instructions: Return to the emergency department if her symptoms worsen or not improve. Continue to keep Ashkan wrap on affected elbow and use wrist brace at home. Cycle Tylenol and pain medication at home as needed. Follow-up with your primary care provider in the next 5 days for further evaluation. Is patient prescribed a controlled substance at d/c from ED?: No Referrals: Amy Donahue MD [Primary Care Provider] - 1-2 days Time of Disposition: 14:33
[2024-03-20] MEDS ORDERED: HYDROmorphone 0.5 MG/0.5 ML SYRINGE IM STA (14:01)
--- NOTE | 2024-03-20 14:17 | XR ---
EXAMINATION TYPE: XR elbow complete LT DATE OF EXAM: 03/20/2024 COMPARISON: NONE HISTORY: 58-year-old female pain with range of motion for 1.5 weeks, swelling TECHNIQUE: 3 views FINDINGS: No elbow joint effusion. Mild spurring on the trochlear joint. Some calcifications or exter nal debris both medially and laterally can be correlated clinically. IMPRESSION: No acute osseous abnormality seen. There are ossific/calcific densities seen both medially and latera lly. Correlate for external debris on the skin surface versus some type of retained foreign body mate rial.
[2024-03-20] MEDS ORDERED: HYDROmorphone 0.5 MG/0.5 ML SYRINGE ONE (15:29)
[2024-03-20 15:56] VITALS: BP 192/93; PULSE 73
== END 2024-03-20 15:55 | disposition home or self-care (01) ==
LOC: EC 12:20
DX: G56.02 Carpal tunnel syndrome, left upper limb (principal); M77.8 Other enthesopathies, not elsewhere classified; Z88.1 Allergy status to other antibiotic agents; Z91.041 Radiographic dye allergy status; Z88.0 Allergy status to penicillin; Z88.8 Allergy status to other drugs, medicaments and biological substances
CPT/HCPCS: 99283

== ENCOUNTER → 2024-06-06 | Day surgery (SDC) | payer MEDICARE, OTHER ==
[~2024-06-06] MED LIST changes: +ACETAMINOPHEN TAB 325 MG TAB ONE; -ALPRAZolam 0.25 MG TAB PO PRN; -ALPRAZolam 0.5 MG TAB PO PRN; -NITROGLYCERIN SL TABS 0.4 MG TAB SUBLINGUAL PRN; -SODIUM CHLORIDE 0.9% 1,000 ML in EMPTY BAG 1 BAG IV ONE; +diazePAM 5 MG TAB ONE
--- NOTE | 2024-06-27 13:30 | CT ---
Michelet Nickersonashlie ID: [id number] : 1965 EXAMINATION TYPE: CT lumbar lumbar myelogram DATE OF EXAM: 06/06/2024 COMPARISON: Radiographs 03/14/2024 HISTORY: 58-year-old female with lumbar stenosis and pain TECHNIQUE: CT of the lumbar spine following lumbar myelogram injection. Please refer to myelogram inj ection report of the same day for further details. Coronal and sagittal reconstructions performed. CT DLP: 1310.4 mGycm Automated exposure control for dose reduction was used. FINDINGS: Partially visualized low-density right adrenal nodule measuring at least 2.8 cm. Attenuation of 0 Jesus nsfield units in keeping with lipid rich adrenal adenoma. Cholecystectomy clips. There is a right-sided generator device posteriorly with leads extending towards the posterior midlin e and entering the spinal canal via the T12-L1 interlaminar space. Vertebral body height are preserved and alignment are maintained. Mild degenerative disc bulging particularly L4-L5 and L5-S1. There is some disc space narrowing and d isc desiccation also present at L5-S1. Moderate to advanced facet arthropathy mid to lower lumbar spine. Vertebral body heights are preserved and alignment is maintained. No large focal disc herniation or significant spinal canal stenosis is seen. Chronic superior and plate Schmorl's nodes T12 and L1 vertebral bodies. Conus medullaris is normal. On the left, changes result in moderate neural foraminal stenosis at L5-S1, mild to moderate at L3-L4 , and mild at L4-L5. Left lateral disc osteophyte complex at L5-S1 abuts the extraforaminal left L5 n erve root. On the right, changes result in mild to moderate neuroforaminal stenosis at both L4-L5 and L5-S1 and mild at L3-L4. IMPRESSION: 1. [id number] DEGENERATIVE DISC DISEASE L5-S1 AND MILD AT L4-L5. ADDITIONAL MODERATE TO ADVANCE D FACET ARTHROPATHY MID TO LOWER LUMBAR SPINE. 2. NO VERTEBRAL COMPRESSION COLLAPSE OR MALALIGNMENT. 3. NO LARGE FOCAL DISC HERNIATION OR SIGNIFICANT SPINAL CANAL STENOSIS. 4. DEGENERATIVE CHANGES RESULT IN MODERATE LEFT NEUROFORAMINAL STENOSIS AT L5-S1. A LEFT LATERAL DISC OSTEOPHYTE COMPLEX HERE ABUTS THE EXTRAFORAMINAL LEFT L5 NERVE ROOT. 5. Additional variable mild to moderate neural foraminal stenoses in the mid and lower lumbar spine a s outlined above. 6. A 2.8 cm lipid rich right adrenal adenoma incidentally noted. 7. Spinal stimulator leads entering the spinal canal via the T12-L1 interlaminar space.
--- NOTE | 2024-07-05 09:47 | FL ---
Maynor Nickerson [id number] : 1965 EXAMINATION TYPE: FL myelogram lumbosacral DATE: 06/06/2024 CLINICAL HISTORY: 58 year-old female with lumbar back pain, lumbar stenosis COMPLICATIONS: Radiograph 03/14/2024 SEDATION: Medication administered by radiology nursing. The patient and the patient's vital signs were monitor ed by qualified independent radiology personnel. TECHNIQUE: There is a right-sided generator device. Stimulator leads extend into the lumbar spinal canal and ext ending up beyond the [id number]. The procedure and potential risks were explained to patient and an informed consent was obtained with teach back. Site and side was verified. A time out was performed. The patient was placed prone on the fluoroscopy table and the L3-L4 level was localized and the skin was marked and was prepped and draped in the usual sterile fashion. Lidocaine was used for local anesthesia. Utilizing fluoroscopic guidance a 22-gauge spinal needle was placed through the skin and into the subarachnoid space. Clear CSF was visualized. Subsequently, a total of 12 mL Isovue-M 200 contrast material was administe red into the thecal sac without difficulty. The needle was removed and the table was manipulated to p romote passage up and down the lumbar spine. The patient tolerated the procedure well and was sent to the CT suite in satisfactory condition. The estimated blood loss was minimal. The patient's condition was unchanged following the procedure. Fluoroscopy time: 37 Total images: 5 Total DAP: 10 mGycm2 IMPRESSION: Successful lumbar myelogram injection for CT.
== END ==
LOC: RADPROMAIN 07:47
PROVIDERS: ATTEND Orthopaedic Surgery
DX: M48.061 Spinal stenosis, lumbar region without neurogenic claudication (principal); M47.816 Spondylosis without myelopathy or radiculopathy, lumbar region; M51.36 Other intervertebral disc degeneration, lumbar region; M25.78 Osteophyte, vertebrae; D35.01 Benign neoplasm of right adrenal gland
CPT/HCPCS: 62304; 72132

== ENCOUNTER → 2024-07-12 | Outpatient (CLI) | payer MEDICARE, OTHER | END | disposition home or self-care (01) | LOC: LABPAT 11:22 | PROVIDERS: ATTEND Orthopaedic Surgery | DX: Z01.812 Encounter for preprocedural laboratory examination (principal); Z22.322 Carrier or suspected carrier of Methicillin resistant Staphylococcus aureus | CPT/HCPCS: 36415; 86850; 86900; 86901; 87070 ==

== ENCOUNTER 2024-07-18 06:17 | Day surgery (SDC) | payer MEDICARE, OTHER ==
--- NOTE | 2024-07-16 20:39 | P.HPOR ---
History of Present Illness H&P Date: 06/08/24 [facility] Patient Name: Maynor Nickerson Age/Sex: 58, F : [birth year] ApprovedRMG 2 [facility] DO Mandy Schuster, MSN, NPC [address] [place] [address] P: Patient Name: Maynor Nickerson Age/Sex: Ric, F : 63 DATE: Jun 08, 2024 10:00AM EDT VISIT: FOLLOW UP/PREOP DEMOGRAPHICS: Height: 58 Weight: 235 BMI: 35.7 Occupation: Disabled VAS: 8 CHIEF COMPLAINT: ? Low back pain, LE WEAKNESS HISTORY: ? 58 yo female presents with complaints of LLE pain, weakness and low back pain that have been going on for the last 6 months. She was previously taken care of by a PMR office in [place] and she had a spinal stimulator placed. She states this has done nothing for her, and has even made her leg issues worse. She states also that they wanted to place a pain pump of which she has refused as she wants to be fixed. Her son is a patient of mine and did well from his surgery and so she is here to see me. She has had CT myelogram as well as X Rays. She states she continues to progressively have more LLE pain that travels down to her foot down the front of her leg and to her big toes. She also complains of back pain that is severe and worse with any activity. She has had injections, KARIS, facet blocks and multiple rounds of PT in the past without relief of her sx. She is frustrated and ready to have surgery to fix her issues. She denies any trauma or other issues currently. Patient denies any f/c/sob/cp, perineal numbness or tingling, bowel or bladder i ncontinence/retention. Patient is ambulatory The patients' past social, medical, family, surgical history, as well as review of systems, have been reviewed. Please refer to the Neurosurgery History and Physical form that has been scanned into our electronic medical record system. 16 points review of systems completed and as stated in HPI, all other systems reviewed are negative. PREVIOUS TREATMENTS: PAST IMAGING: -YES -CT myelogram -XR lumbar spine TRAUMA RELATED: -NO WORK RELATED: -NO PT IN LAST 6 MONTHS: -YES -Last visit 1.5 months ago. No relief. PHYSICIAN DIRECTED HOME EXERCISE PROGRAM: -YES ACTIVITY MODIFICATION: -YES MEDICATIONS: -YES -Cochise, Tylenol, Motrin, Prednisone. No lasting relief with any ALTERNATIVE INTERVENTIONS (CHIROPRACTIC, ACUPUNCTURE, MASSAGE, RICE): -YES -Spinal stimulator placement without any relief of sx, in fact made worse. BRACING: -NO INJECTIONS (KARIS, TF, RFA): -YES -OTHER: NA MEDICAL HISTORY: Past Medical History: REVIEWED STATED IN CHART Past Surgical History: REVIEWED STATED IN CHART Social History: REVIEWED STATED IN CHART ? Smoking/ Tobacco use: Never Smoker ? ETOH use: None ? Substance use: None Family History: REVIEWED STATED IN CHART Current Medications: REVIEWED STATED IN CHART ? See nursing list. Reviewed with pt. PHYSICAL EXAM: General: AOX3, NAD, Well hydrate, Well nourished HEENT: No lumps or masses Extremities: No color changes, no pooling INTEGUMENT: Appearance: Normal color and turgor Surgical Incisions: Well Healed posterior for stim placement Hairy Patches: ABSENT Dorsal Skin Dimples: Normal [employer] spots: ABSENT PALPATION: (TTP) Midline: NO Paracervical: NO Parathoracic: NO Paralumbar: YES SIJ TESTING: Tested -TTP NO BILATERAL -Fortins Finger: NEGATIVE BILATERAL -FABER4: NEGATIVE BILATERAL -Compression: NEGATIVE BILATERAL -Distraction:NEGATIVE BILATERAL -Thigh thrust: NEGATIVE BILATERAL -Hip thrust:NEGATIVE BILATERAL POSTURAL BALANCE: -Coronal: BALANCED -Sagittal: BALANCED -Shoulder height: LEVEL -Pelvic Girdle: LEVEL ROM AND APPEARANCE: Neck: UNRESTRICTED Lumbar: RESTRICTED WITH PAIN Shoulders: Symmetrical Hips: Symmetrical Knees: Symmetrical Hands: Symmetrical Feet: Symmetrical VASCULAR STATUS: RUE- 2 LUE-2 RLE-2 LLE-2 Edema: NONE NEUROLOGICAL EXAMINATION: Mental Status: Awake, alert, oriented fully with normal attention, concentration and memory. Fluent appropriate speech. CRANIAL NERVES: I: Olfactory not tested. II: Visual acuity normal, no visual field deficit noted with confrontation. III,IV: Normal pupillary reflexes & intact extraocular movements without nystagmus. V,: Intact symmetrical facial sensation. VII: Intact symmetrical facial motor movementVIII: Hearing intact. IX,X: Intact gag, swallow, & normal voice. XI: Sternocleidomastoid, trapezius function intact. XII: Tongue midline with normal movements. TENSIONING: L'HERMITTE'S SIGN: NEGATIVE SPURLING'S SIGN: NEGATIVE CUBITAL COMPRESSION: NEGATIVE TINEL'S AT WRIST: NEGATIVE SLR:POSITIVELEFT CROSSED SLR: NEGATIVE MOTOR EXAM (0-5/5, NT) Muscle appearance: * Symmetrical, without signs of atrophy or dystrophy UPPER EXTREMITY RIGHT LEFT SHOULDER ABDUCTION 5 5 BICEP 5 5 TRICEP 5 5 WRIST EXTENSION 5 5 INTRINSICS 5 5 CLOTH COVERED HELMET PULLER 5 5 LOWER EXTREMITY HIP FLEXION 5 5 KNEE FLEXION 5 5 KNEE EXTENSION 5 5 DORSIFLEXION 5 4 PLANTAR FLEXION 5 4 EHL 5 4 FHL 5 4 REFLEXES (0-4/2, NT): RIGHT LEFT BICEP 2 2 TRICEP 2 2 BRACHIORADIALIS 2 2 PATELLAR 2 2 ACHILLES 2 1 PATHOLOGICAL REFLEXES: RIGHT LEFT HOFFMANS ABSENT ABSENT CLONUS ABSENT ABSENT BABINSKI ABSENT ABSENT Rectal Tone: INTACT SENSATION (0-4, NT): Intact to light touch and pain sensation to C5-T1 as well as L2-S2 except that noted below Hyperesthesia: ABSENT Dermatomal deficit: YES ? Levels: L4-5 LEFT> RIGHT GAIT AND FUNCTIONAL EVALUATION: -Ambulatory aids YES Cane -Rombergs test NEGATIVE -Hand and finger dexterity intact bilaterally? YES -Dysdiadochokinesia examination negative bilaterally? YES -Toe heel walk / heel-toe walk intact while maintaining satisfactory balance? NO -Squatting/straightening w/o assistance to a min of 60 degree knee flexion? NO -Single leg stance: NOT ABLE -Trendelenburg sign NT IMAGING: XRAY Date: March 14, 2024 Region:Lumbar Location: [facility] Views:AP/LAT/FLEX/EXT/OB/AP PELVIS FINDINGS: Images reviewed with patient in office ? These demonstrate mild to moderate spondylosis of L3-S1 with well maintained disc height, alignment, and lordosis. There is moderate to severe facet arthrosis noted. No fractures or lesions noted. Pelvis is stable w/o fractures. CT Date: Jun 06, 2024 Region: Lumbar Location: [facility] Contrast: YES FINDINGS: Images reviewed with patient in office ? These demonstrate moderate to severe central and left foraminal stenosis at L4-5 with spondylosis and facet arthropathy. Ligamentous hypertrophy and facet hypertrophy contribute to her central and foraminal stenosis. HNP at this level that is paracentral to the left causes displacement of the L5 root as it traverses. There is lateral recess stenosis that is moderate to severe as well. NO fractures noted. No lesions. MOderate to severe facet arthrosis is noted from L4-S1 b/l. IMPRESSION: It was my pleasure to have seen and examined Maynor Nickerson. I reviewed the patient's clinical syndrome, physical findings, and imaging studies during the appointment today. It is my impression that the patient has a diagnosis of. 1. LUMBAR SPONDYLOSIS WITH RADICULOPATHY 2. LOWER EXTREMITY RADICULOPATHY 3. LOWER EXTREMITY WEAKNESS 4. LOW BACK PAIN 5. IRRITABLE HARDWARE, SPINAL STIMULATOR THAT NO LONGER FUNCTIONS PLAN: DISCUSSION: ? I have discussed options with the patient regarding her imaging and treatment. She has tried multiple modalities and conservative measures to treat her stenosis and spondylosis at L4-5 none of which have helped her thus far. She is ready for surgery. We discussed risks and benefits of surgery as well as limitations and possible outcomes. She is in agreement and would like to proceed as described below. ? We will obtain appropriate preoperative work up as well as labs, EKG and CXR. SHe will get cleared by her PCP for surgery. She will return 1 week before surgery for a preoperative visit. She agrees. SURGICAL RECOMMENDATION: ? L4-5 Laminectomy with stimulator removal ? [id number], [id number], [id number] THERAPIES: ? Cont with home exercises and home PT exercises as able ? Cont with Heat/Ice as warranted ? Cont with supplementation Vit D, Vit C, Ca2+, High protein diet ? OK for massage or other alternative treatment modalities as possible. If it exacerbates your sx do not continue ACTIVITY ? Advance as tolerated ? 20-30 lbs LIFTING BENDING TWISTING PUSHING PULLING LIMIT ? Recommend walking up to 30 min 2x daily on a flat, easy surface with good support. MEDICATIONS ? Continue previous medications ? Take as directed ? Cont home medications as directed by your PCP. Check with your PCP for any medication interactions or issues if needed. IMAGING ? No new imaging at this time FOLLOW UP: POST OP PLAN AT NEXT VISIT: RECHECK PATIENT EDUCATION: Medications Reviewed: YES In our visit today the patient and I have had a chance to go over my understanding of their current condition, the natural course history without intervention and various interventional options. Questions were invited and answered, and the patient wishes to proceed as outlined above. I will be sure to keep you updated after the patient returns here for further follow-up. Thank you again for your referral. Please do not hesitate to contact me if you have any further questions. Signed and authenticated by: Jun 08, 2024 8:00AM DO Linda Landa [facility] [address] [place] [address] This document is confidential, intended only for the named recipient(s) and may contain information that is privileged or exempt from disclosure under applic able law. If you are not the intended recipient(s), you are notified that the dissemination, distribution or copying of this information is strictly prohibited. If you received this message in error, please notify the sender then delete this message. Past Medical History Past Medical History: CVA/TIA, Diabetes Mellitus, GERD/Reflux, Hyperlipidemia, Hypertension, Osteoarthritis (OA), Skin Disorder, Sleep Apnea/CPAP/BIPAP, Thyroid Disorder Additional Past Medical History / Comment(s): Chronic neck pain, Goiter x 3 years., chronic bronchitis, TIA 2009-left sided weakness, doesn't always use CPAP, hx. anemia, stage 3 kidney disease, hx. eczema History of Any Multi-Drug Resistant Organisms: None Reported Past Surgical History: Cholecystectomy, Hysterectomy, Joint Replacement, Orthopedic Surgery Additional Past Surgical History / Comment(s): R hip replaced x 2, colonoscopy, pain stimulator insertion Oct. Past Anesthesia/Blood Transfusion Reactions: Motion Sickness, Postoperative Nausea & Vomiting (PONV) Additional Past Anesthesia/Blood Transfusion Reaction / Comment(s): no hx. of blood transfusion reaction Smoking Status: Never smoker - Past Family History Mother Family Medical History: Deep Vein Thrombosis (DVT) Father Family Medical History: Cancer Additional Family Medical History / Comment(s): Throat Medications and Allergies Home Medications Medication Instructions Recorded Confirmed Type Aspirin [Adult Low Dose Aspirin EC] 81 mg PO DAILY 09/09/20 07/11/24 History Cyanocobalamin [Vitamin B-12] 500 mcg PO DAILY 09/09/20 07/11/24 History Gabapentin [Neurontin] 800 mg PO TID 09/09/20 07/11/24 History Linaclotide [Linzess] 145 mcg PO DAILY 09/09/20 07/11/24 History Metoprolol Tartrate [Lopressor] 75 mg PO HS 09/09/20 07/11/24 History Multivitamins, Thera [Multivitamin 1 tab PO DAILY 09/09/20 07/11/24 History (formulary)] Sertraline [Zoloft] 200 mg PO HS 09/09/20 07/11/24 History Simvastatin [Zocor] 20 mg PO HS 09/09/20 07/11/24 History busPIRone HCL [Buspar] 7.5 mg PO TID 09/09/20 07/11/24 History metFORMIN HCL [Glucophage] 500 mg PO BID 09/09/20 07/11/24 History oxyCODONE-APAP 10-325MG [Percocet 1 tab PO Q8HR PRN 09/09/20 07/11/24 History 10-325 mg] tiZANidine [Zanaflex] 6 mg PO TID 09/09/20 07/11/24 History traZODone HCL 100 mg PO HS 09/09/20 07/11/24 History Hydrocortisone Cream 1 applic TOPICAL DAILY PRN 09/27/20 07/11/24 History [Hydrocortisone 2.5% Cream] Ketoconazole 2% Cream [Nizoral 2%] 1 applic TOPICAL DAILY PRN 09/27/20 07/11/24 History Metoprolol Tartrate [Lopressor] 25 mg PO DAILY 09/27/20 07/11/24 History Triamcinolone 0.1% Ointment 1 applic TOPICAL BID PRN 09/27/20 07/11/24 History [Kenalog 0.1% Ointment] amLODIPine [Norvasc] 2.5 mg PO DAILY 09/27/20 07/11/24 History Lidocaine 5% Patch [Lidoderm] 1 patch TOPICAL DAILY 07/11/24 07/11/24 History Famotidine [Pepcid] 40 mg PO DAILY 07/12/24 07/12/24 History Allergies Allergy/AdvReac Type Severity Reaction Status Date / Time erythromycin base Allergy Anaphylaxis Verified 07/11/24 15:29 Iodinated Contrast Media Allergy Anaphylaxis Verified 07/11/24 15:29 iodine Allergy Anaphylaxis Verified 07/11/24 15:29 metronidazole [From Flagyl] Allergy Anaphylaxis Verified 07/11/24 15:29 Penicillins Allergy Anaphylaxis Verified 07/11/24 15:29 IV dye Allergy Anaphylaxis Uncoded 07/11/24 15:29 Physical Examination Osteopathic Statement: *. No significant issues noted on an osteopathic structural exam other than those noted in the History and Physical/Consult.
[~2024-07-18 06:17] MED LIST changes: -ACETAMINOPHEN TAB 325 MG TAB ONE; +GABAPENTIN 300 MG CAP PO PRN; +LIDOCAINE 1% (10MG/ML) FOR IV START INTRADERMA PRN; +ONDANSETRON 4 MG/2 ML VIAL IVP PRN; +TRANEXAMIC 1,000 MG/100ML-NACL 1,000 MG in SALINE 1 100ML.BAG IVPB PRN; -diazePAM 5 MG TAB ONE
[2024-07-18] MEDS ORDERED: MIDAZOLAM 2 MG/2 ML VIAL IV PRN (07:00)
[2024-07-18] MEDS ORDERED: fentaNYL (PF) 50 MCG/ML 2 ML AMP IVP PRN (07:00)
[2024-07-18] MEDS: IV FLUID CONTINUATION 1,000 ML IV ONE ×3 (07:03→11:07)
[2024-07-18] MEDS: LACTATED RINGERS 1,000 ML IV SCH (07:17)
[2024-07-18] MEDS: DEXAMETHASONE SOD PHOSPHATE 4 MG/ML 1 ML VIAL IV ONE (07:17)
[2024-07-18] MEDS: SCOPOLAMINE 1 MG/72 HR PATCH TRANSDERM STA (07:18)
[2024-07-18] MEDS: ACETAMINOPHEN TAB 500 MG TAB PO PRN (07:18)
[2024-07-18] MEDS: ONDANSETRON 4 MG/2 ML VIAL IVP ONE (07:18)
[2024-07-18] MEDS ORDERED: TRANEXAMIC 1,000 MG/100ML-NACL PREMIX BAG ONE (07:24)
[2024-07-18] MEDS ORDERED: SUCCINYLCHOLINE CHLORIDE 200 MG/10 ML VIAL IV ONE (07:24)
[2024-07-18] MEDS ORDERED: fentaNYL (PF) 50 MCG/ML 2 ML AMP ONE (07:24)
[2024-07-18] MEDS ORDERED: NEOSTIGMINE 1 MG/ML 10 ML VIAL ONE (07:24)
[2024-07-18] MEDS ORDERED: LIDOCAINE 1% INJ 10MG/ML (20 ML MDV) ONE (07:24)
[2024-07-18] MEDS ORDERED: ROCURONIUM 10 MG/ML (5 ML VIAL) IV ONE (07:24)
[2024-07-18] MEDS ORDERED: PROPOFOL 10 MG/ML 20 ML VIAL IV ONE (07:24)
[2024-07-18] MEDS ORDERED: KETAMINE HCL IN 0.9 % NACL 50 MG/5 ML SYRINGE ONE (07:24)
[2024-07-18] MEDS ORDERED: GLYCOPYRROLATE 0.2 MG/ML 2 ML VIAL ONE (07:24)
[2024-07-18] MEDS ORDERED: ePHEDrine 50 MG/ML 1 ML VIAL ONE (07:24)
[2024-07-18] MEDS ORDERED: MIDAZOLAM 2 MG/2 ML VIAL ONE (07:24)
[2024-07-18] MEDS: VANCOMYCIN 1,500 MG in SODIUM CHLORIDE 0.9% 500 ML 500 ML IVPB PRN (07:30)
[2024-07-18] MEDS: ceFAZolin 3,000 MG in SODIUM CHLORIDE 0.9% IRRIGATIO 3,000 ML IRRIGATION ONE (08:11)
[2024-07-18] MEDS: BUPIVACAINE (PF) 0.5% 30 ML VIAL SQ ONE (08:11)
[2024-07-18] MEDS: LIDOCAINE 2%-EPI 1:100,000 20 ML VIAL SQ ONE (08:11)
[2024-07-18] MEDS: THROMBIN (BOVINE) 5,000 UNIT VIAL TOPICAL ONE (08:11)
[2024-07-18] MEDS: VANCOMYCIN 1,000 MG VIAL MISCELLANE ONE (09:00)
[2024-07-18 09:38] VITALS: TEMP 97.6
--- NOTE | 2024-07-18 09:44 | P.OP ---
Date of Procedure: 07/18/24 Preoperative Diagnosis: SPINAL STIMULATOR FAILURE LLE RADICULOPATHY L4-5 STENOSIS WITH RADICULOPATHY LOW BACK PAIN Postoperative Diagnosis: SPINAL STIMULATOR FAILURE LLE RADICULOPATHY L4-5 STENOSIS WITH RADICULOPATHY LOW BACK PAIN Procedure(s) Performed: L4-5 LAMINOFORAMINOTOMY LEFT REMOVAL OF STIMULATOR LEADS INTRASPINAL TWO PRONGS 8 LEADS (16 TOTAL) REQUIRING LAMINECTOMY L1-2 REMOVAL OF BATTERY PACK AND PULSE GENERATOR, SEPARATE INCISION ([employer] XR; 3660; S/N [id number]) Implants: NONE Anesthesia: GETA Surgeon: Johnathan Booker Manager Mechanical Maintenance #1: Mandy Barnhart (WAS PRESENT AND ASSISTED WITH ALL ASPECTS OF THE CASE FROM POSITION TO DRESSING PLACEMENT) Estimated Blood Loss (ml): 50 IV fluids (ml): 1,200 Urine output (ml): 0 Pathology: none sent Condition: stable Disposition: PACU Indications for Procedure: 58 YO female presenting for hardware failure, spinal stimulator failure and desire for removal with LLE radiculopathy in the L4-5 region with low back pain and LE weakness. I have discussed options with the patient regarding her imaging and treatment. She has tried multiple modalities and conservative measures to treat her stenosis and spondylosis at L4-5 none of which have helped her thus far. She is ready for surgery. We discussed risks and benefits of surgery as well as limitations and possible outcomes. She is in agreement and would like to proceed as described below. ? We will obtain appropriate preoperative work up as well as labs, EKG and CXR. SHe will get cleared by her PCP for surgery. She will return 1 week before surgery for a preoperative visit. She agrees. SURGICAL RECOMMENDATION: ? L4-5 Laminectomy with stimulator removal Description of Procedure: L4-5 LAMINOFORAMINOTOMY; SPINAL STIMULATOR REMOVAL The patient was seen and examined in the preoperative area. All preoperative protocols were followed. Informed consent was obtained, risks and benefits of the procedure were discussed at length. Risks including bleeding infection damage to the surrounding tissue and risk of reoperation were discussed with the patient. Risk of anesthesia up to and including was discussed with the patient. These are outlined in the risk review. They were willing to accept these risks and all the risks of surgery. The patient was given a weight-based dose of antibiotics in the form of 2 g Ancef. The patient was seen and evaluated by the anesthesia team who deemed them fit for surgery. The site was marked, the patient was willing to proceed with the procedure. The patient was transferred to the operative suite by the Department of anesthesia. They were then drifted off to sleep by the department anesthesia and GETA was performed. The patient tolerated this well. Once confirmation of lines and ventilation the patient was transferred to a prone Praful table very carefully. All bony prominences including wrists, elbows, axilla, chest, hips, and thighs, and feet were padded very well. Special attention was paid to the genitalia, and these were padded accordingly. SCDs were placed on bilateral lower extremities and were connected. Arms were well padded and placed on arm boards up and out in the 90/90 position. Once in position, again we confirmed good ventilation capabilities and that lines were running appropriately. The patients Lumbar spine was then exposed. 1010s were placed outlining the incision site. Standard alcohol was used to clean the incision site and allowed to dry. C-arm was used to needle localize the pedicles at L4-5 and bio-jeannette the patient and confirm level for incision which was marked with a skin marker. Operative briefing was performed with all teams and everyone in agreement to proceed. The patient was then prepped and draped in a normal sterile fashion. Timeout was then performed, and all parties agreed with the procedure to be performed. Skin incision was made over the previously marked area and dissection taken down to the deep facia. On top of the fascia were the connections for the leads for the stimulator. These were dissected off the facia and surrounding tissues. The wires were then cut. A separate incision was then made and the pulse generator and batter were removed along with the attached wires. We then removed the stimulator leads from intraspinal after laminectomy. The area was irrigated. We then turned attention to the L4-5 region which was split just off midline for a midline sparing approach. Subperiosteal dissection was then taken down the lamina over the facet joints and identifying the pars at L4. Spring 4 was placed at the level of the pars of L4 and a lateral image taken to confirm operative level. Retractors were then placed. Microscope was then brought in for visualization. Santy-laminotomy, partial medial facetectomy and foraminotomy were performed at L4-5 using high speed ethel and Kerrison rongure. The ligamentum flavum was removed with Kerrison and curette. The area was irrigated, and meticulous hemostasis performed. The bed was inspected, and all roots have ample room and are decompressed along with the dura. There were no injuries. Retractors were then removed. The wound was copiously irrigated with NSS. The deep fascia was closed with 0 PDS. Deep sub-q with 0 Vicryl and superficial with 2-0 Vicryl. Skin closed with eliane. The wound edges approximated well. The wound was then cleaned, was then Covered with an Opifoam dressing. The patient was then transferred off the table back to their hospital bed a-tr aumatically. They were extubated by the department of anesthesia. They were then transferred to PACU in stable condition having tolerated the procedure with no complications.
[2024-07-18] MEDS: HYDROmorphone 0.5 MG/0.5 ML SYRINGE IVP PRN (09:57)
[2024-07-18] MEDS: MEPERIDINE 50 MG/ML SYRINGE IVP STA (10:38)
[2024-07-18 11:21] VITALS: RESP 16
[2024-07-18] MEDS: oxyCODONE-APAP 10-325MG 1 EACH TAB PO PRN (12:06)
[2024-07-18 12:41] VITALS: BP 138/66; PULSE 86
--- NOTE | 2024-07-18 18:13 | FL ---
EXAMINATION TYPE: FL guidance operating room, XR lumbar spine 2 or 3V DATE OF EXAM: 07/18/2024 9:12 AM COMPARISON: Pre Operative Images if available both CT/MRI or plain film CLINICAL INDICATION: Female, 58 years old with history of M48.061 LUMBAR STENOSIS, T84.84XA IRRITABLE HARDWARE; TECHNIQUE: FL guidance operating room, XR lumbar spine 2 or 3V, multiple fluoroscopic images provided for procedure. Total fluoroscopy time: 15 seconds Total submitted images to PACS: 6 DAP: [phone] mGym2 Gycm2 uGym2 cGycm2 or equivalent. FINDINGS: Fluoroscopic images during internal fixation/arthroplasty demonstrate fixation hardware in appropriat e position. Pain stimulator leads terminating over the spine. Battery pack projects over the lower ba ck/buttock. Hardware appears intact. No immediate complication identified. IMPRESSION: 1. No evidence for intraoperative complication. 2. Please see the operative/procedural note for further details. [facility], , 07/18/2024 6:11 PM
[2024-07-21 11:46] LABS: Glucose,Whole Blood 118 mg/dL (70-110)
== END 2024-07-18 12:45 | disposition home or self-care (01) ==
LOC: OR 06:17
PROVIDERS: ATTEND Orthopaedic Surgery
DX: M48.061 Spinal stenosis, lumbar region without neurogenic claudication
CPT/HCPCS: 72100

== ENCOUNTER → 2024-12-28 | Outpatient (CLI) | payer MEDICARE, OTHER ==
[2024-12-28 18:46] LABS: ALT 8 U/L (8-44); AST 23 U/L (13-35); Chol/HDL Ratio 5.06 Ratio; LDL Cholesterol,Calculated 91.4 mg/dL (0.0-131.0)
== END | disposition home or self-care (01) ==
LOC: LABWHC1 10:59
PROVIDERS: ATTEND Internal Medicine Interventional Cardiology
DX: E78.2 Mixed hyperlipidemia (principal)
CPT/HCPCS: 36415; 80061; 84450; 84460

== ENCOUNTER → 2025-01-18 | Outpatient (CLI) | payer MEDICARE, OTHER ==
[2025-01-18 14:37] VITALS: BP 129/73; PULSE 76; RESP 16; TEMP 98.2
--- NOTE | 2025-01-18 14:51 | P.PAINPG ---
PQRS Measure Charge Sheet Comment: HISTORY OF PRESENT ILLNESS: A 59 yr old female as a referral from Dr Booker presents today w severe and chronic LBP > 1 yr secondary to L L4-L5 Foraminotomy for evaluation. Pt states pain level is provoked at 8 /10 in intensity, constant, localized in the lower lumbar spine, predominantly axial, stabbing in character w occasional shooting pain towards the hips. Pain is provoked by sitting for periods > 30 min. Pain is alleviated by PT x 6 wks which ended in 2023, physician guided home exercises 4-5 times weekly since Summer 2023, heat, medications, repositioning and rest . Oswestry axial pain score at 30. PMH: OA, CVA, NIDDM II, GERD, Hyperlipidemia, HTN, SINCERE, Hypothyroidism, Goiter x 3 yrs, MDD/ Anxiety PSH: L L4-L5 Foraminotomy, Cholecystectomy, Hysterectomy, R Hip Surgery x2, Colonoscopy, R Knee Arthroscopy SH: Negative x3 FH: Mo- DVT. Fa- Esophageal CA All: See list Meds: See list incl Percocet 10/325mg, ASA REVIEW OF ORGAN SYSTEMS: CONSTITUTIONAL: No fevers or chills. No recent weight loss. NEUROLOGICAL: + numbness and tingling along the distal extremities. No seizure disorders or headaches. MUSCULOSKELETAL: + pain PSYCHIATRIC: Denies current depression or suicidal thoughts. Physical Examinations : Constitutional : Cooperative , not in acute distress . Neurologic : Cranial nerve II to XII intact. No focal neurological deficits. Psychiatric : alert & oriented x 3. Matching mood & appropriate affect. Judgment & insight intact. Musculoskeletal : Cervical Spine Motor strength in the deltoid and biceps: Normal right side. Normal Left side Motor strength biceps and the wrist extensors: Normal right side . Normal left side Motor strength in the triceps muscle: Normal right side. Normal left side Deep tendon reflexes: Normal at the biceps. Normal at Brachioradialis. Normal at triceps Vertebral body tenderness to deep palpation over Cervical facet loading test: positive bilaterally Spurling test: positive bilaterally Neck distraction test: positive bilaterally Piotr sign: positive bilaterally Lumbar spine Motor strength lower extremities ,thigh and legs 5/5 Right side , 5/5 Left side Deep tendon reflexes : Normal Knee Jerk. Normal Ankle Jerk Vertebral body tenderness over Barger Test positive Lumbar facet Loading Test: positive Right / positive Left Range of motion of the lumbar spine Flexion 30 degrees, extension 10 degrees Straight Leg Raise test: Left/ Right positive at degrees Gerson test: positive right / positive left. Severe tenderness over the Sacroiliac joint on the Right / Left sides Gaenslen test: positive bilaterally Seated flexion test: positive bilaterally. Sacral spine : Severe tenderness over the Sacroiliac joint: right side / left side Range of motion: Flexion of the lumbar spine <60 degrees Range of motion: Extension of the lumbar spine <20 degrees Gaenslen's Test positive L Gerson test: positive left side Thigh Thrust Test L positive Sacral Thrust Test Imaging: MRI non contrast of the lumbar spine from 11/22/2024 reviewed Assessment/ Plan : L L4-L5 Foraminotomy, L Sacroiliitis, L5-S1 radiculopathy Recommendation of L SI #1. Risks, benefits of procedure discussed and patient verbalized understanding. Admits to anti- coagulant use or medical history of diabetes. Protocol for discontinuation/ continuation of medications nany procedure discussed. All questions answered. I have spent greater than 30 minutes on patient care today. Dr Bacon was available by phone for the evaluation of this patient. The time was used to review the medical records including relevant urine studies and Prescription history (MAPs), review of the available imaging, evaluation and examination of the patient, coordination of care with the medical staff and if applicable referring physicians, as well as creation of the medical record Home Medications: Ambulatory Orders Aspirin [Adult Low Dose Aspirin EC] 81 mg PO DAILY 09/09/20 Cyanocobalamin [Vitamin B-12] 500 mcg PO DAILY 09/09/20 Gabapentin [Neurontin] 800 mg PO TID 09/09/20 Linaclotide [Linzess] 145 mcg PO DAILY 09/09/20 Metoprolol Tartrate [Lopressor] 75 mg PO HS 09/09/20 Multivitamins, Thera [Multivitamin (formulary)] 1 tab PO DAILY 09/09/20 Sertraline [Zoloft] 200 mg PO HS 09/09/20 Simvastatin [Zocor] 20 mg PO HS 09/09/20 busPIRone HCL [Buspar] 7.5 mg PO TID 09/09/20 metFORMIN HCL [Glucophage] 500 mg PO BID 09/09/20 oxyCODONE-APAP 10-325MG [Percocet 10-325 mg] 1 tab PO Q8HR PRN 09/09/20 tiZANidine [Zanaflex] 6 mg PO TID 09/09/20 traZODone HCL 100 mg PO HS 09/09/20 Hydrocortisone Cream [Hydrocortisone 2.5% Cream] 1 applic TOPICAL DAILY PRN 09/27/20 Ketoconazole 2% Cream [Nizoral 2%] 1 applic TOPICAL DAILY PRN 09/27/20 Metoprolol Tartrate [Lopressor] 25 mg PO DAILY 09/27/20 Triamcinolone 0.1% Ointment [Kenalog 0.1% Ointment] 1 applic TOPICAL BID PRN 09/27/20 amLODIPine [Norvasc] 2.5 mg PO DAILY 09/27/20 Lidocaine 5% Patch [Lidoderm] 1 patch TOPICAL DAILY 07/11/24 Famotidine [Pepcid] 40 mg PO DAILY 07/12/24 Sennosides/Docusate Sodium [Senna Plus 8.6-50 mg Tablet] 1 each PO DAILY PRN #40 tab 07/18/24 Sulfamethox-Tmp 800-160Mg [Bactrim DS 800-160 mg] 1 tab PO Q12HR #10 tab 07/18/24 oxyCODONE-APAP 10-325MG [Percocet 10-325 mg] 1 tab PO Q4HR PRN #42 tab 07/18/24 Controlled Substance Measures - Controlled Substance Measures Is patient prescribed a controlled substance at discharge?: No
== END ==
LOC: PNWHC3 14:15
PROVIDERS: ATTEND Specialist
DX: M46.1 Sacroiliitis, not elsewhere classified (principal); M54.17 Radiculopathy, lumbosacral region; Z98.890 Other specified postprocedural states; Z88.1 Allergy status to other antibiotic agents; Z91.041 Radiographic dye allergy status; Z88.2 Allergy status to sulfonamides; Z88.3 Allergy status to other anti-infective agents; Z88.0 Allergy status to penicillin
CPT/HCPCS: 99202

== ENCOUNTER → 2025-02-06 | Day surgery (SDC) | payer MEDICARE, OTHER ==
[2025-02-05 10:05] VITALS: BMI 35.7
[~2025-02-06] MED LIST changes: -GABAPENTIN 300 MG CAP PO PRN; +LACTATED RINGERS 1,000 ML IV SCH; -LIDOCAINE 1% (10MG/ML) FOR IV START INTRADERMA PRN; -ONDANSETRON 4 MG/2 ML VIAL IVP PRN; +ROPIVACAINE 5MG/ML 20ML VIAL ONE; -TRANEXAMIC 1,000 MG/100ML-NACL 1,000 MG in SALINE 1 100ML.BAG IVPB PRN; +methylPREDNISolone ACETATE 40 MG/ML 1 ML VIAL ONE
[2025-02-06 13:05] VITALS: TEMP 97
[2025-02-06 13:06] LABS: Glucose,Whole Blood 111 mg/dL (70-110)
--- NOTE | 2025-02-06 14:05 | P.PCN ---
Date of Procedure: 02/06/25 Procedure(s) Performed: Procedure= Left sacroiliac joints steroid injection under fluoroscopy guidance (fluoroscopy image stored on file in the radiology Department ) Preoperative diagnosis= 1- left sacroiliitis Postoperative diagnosis=Same as preop Diagnosis . Complication = none Condition= stable Anesthesia= local anesthesia with ropivacaine 0.5% 2 ml only Indication for the procedure= patient complaining of low back pain , examination was positive for severe tenderness over the sacroiliac joints bilaterally and patient diagnosed with sacroiliitis, for this reason he/ she was good candidate for sacroiliac joint steroid injection. Description of the procedure= procedure risk and benefits discussed with the patient, including but not limited, risk of infection and bleeding, and ALLERGIC reaction to the medication and not complete pain relief and patient agreed with the preceding patient taken to the operating room, placed in prone position or standard monitors applied to the patient then after induction of anesthesia back prepped with chlorhexidine 3 times , Then under strict sterile technique ,I did the left sacroiliac joint steroid injection , local infiltration of the skin and subcu interstitial at the location of the left sacroiliac joint then a 23-gauge Quincke Needle advanced slowly under fluoroscopy time placed in the left sacroiliac joint, needle placement confirmed with AP and oblique and lateral view then after appropriate needle placement confirmed, with the AP and oblique and lateral view, and after negative aspiration 0.5% Ropivacaine 2 mL and 40 mg of Depo-Medrol injected in the left sacroiliac joint after negative aspiration patient tolerated the proce dure well that any complications and she will follow up in clinic 3 weeks note= Isovue was not injected because patient has allergy to IVP dye
--- NOTE | 2025-02-06 14:16 | FL ---
EXAMINATION TYPE: FL guided pain mgmt statistic DATE OF EXAM: 02/06/2025 2:06 PM COMPARISON: Pre Operative Images if available both CT/MRI or plain film CLINICAL INDICATION: Female, 59 years old with history of SI Inj; TECHNIQUE: FL guided pain mgmt statistic, multiple fluoroscopic images provided for procedure. DAP: 0.11165 mGym2 Gycm2 uGym2 cGycm2 or equivalent. FINDINGS: Fluoroscopic images during injection for pain management demonstrate multilevel degeneration changes throughout the spine. No evidence for fracture. No acute process identified. IMPRESSION: 1. No evidence for intraoperative complication. 2. Please see the operative/procedural note for further details. [facility], , 02/06/2025 2:14 PM
[2025-02-06 14:36] VITALS: BP 148/81; PULSE 70; RESP 18
== END ==
LOC: ORPAIN 11:29
PROVIDERS: ATTEND Specialist
DX: M46.1 Sacroiliitis, not elsewhere classified (principal); Z88.0 Allergy status to penicillin; Z88.1 Allergy status to other antibiotic agents; Z88.2 Allergy status to sulfonamides; Z91.041 Radiographic dye allergy status
CPT/HCPCS: 27096; J2795; J1010

== ENCOUNTER 2025-04-05 11:42 | Day surgery (SDC) | payer MEDICARE, OTHER ==
[2025-04-02 15:57] VITALS: BMI 35.2
[2025-04-05] MEDS: IV FLUID CONTINUATION 1,000 ML IV ONE ×2 (12:00→13:16)
[2025-04-05] MEDS: LACTATED RINGERS 1,000 ML IV SCH (12:24)
[2025-04-05 12:27] VITALS: RESP 16; TEMP 97.8
[2025-04-05 12:27] LABS: Glucose,Whole Blood 106 mg/dL (70-110)
[2025-04-05] MEDS ORDERED: ONDANSETRON 4 MG/2 ML VIAL ONE (12:56)
[2025-04-05] MEDS ORDERED: MIDAZOLAM 2 MG/2 ML VIAL ONE (12:56)
[2025-04-05] MEDS ORDERED: ROPIVACAINE 5 MG/ML 30 ML VIAL ONE (12:56)
[2025-04-05] MEDS ORDERED: fentaNYL (PF) 50 MCG/ML 2 ML AMP ONE (12:56)
--- NOTE | 2025-04-05 13:20 | P.PCN ---
Description of Procedure: Preprocedure diagnosis. 1. Lumbar spondylosis with facet joint arthropathy without myelopathy. 2. Lumbar degenerative disc disease. Postprocedure diagnosis. As above. Procedure done. Bilateral diagnostic block with local anesthetics at L4, L5 medial branch to target the facet joint L5-S1 with fluoroscopic guidance (fluoroscopy images are available in the radiology department) . Anesthesia. Moderate sedation with intravenous Versed 2 mg and fentanyl 50 microgram and local infiltration with local anesthetics. In OR, continuous pulse ox, EKG, blood pressure and verbal communication was maintained. Sedation time-start 1256 end 1308 . Blood loss. Minimal. Indication. The patient has low back pain secondary to lumbar facet joint arthropathy. Discussed the procedure and alternative and complications which includes infection, bleeding, nerve damage, paralysis ,aggravation of pain. Patient understands and all questions were answered. Patient iunderstands that if any pain relief occurs it will last for a few hours to a few days maximum. Procedure description. After getting consent patient was taken in the OR in prone position. Back prepped with chlorhexidine and draped in sterile fashion. After injecting 5 mL of plain 1% lidocaine subcutaneously, a 22-gauge spinal needle was introduced under tunnel vision of the fluoroscope at the junction of the superior articular process with RIGHT ala of the sacrum. With slight oblique fluoroscope, after injecting 5 mL of plain 1% lidocaine subcutaneously, a 22-gauge spinal needle was introduced under tunnel vision of the fluoroscope at the junction of the superior articular process with RIGHT L5 transverse process. Negative CSF, negative blood, negative paresthesia. After needle position confirmation by AP and crosstable lateral view, after negative aspiration, half milliliters of solution were injected at each point. Total 1 mL of solution was injected on the right side which consists of 0.5% ropivacaine. In exactly same way, LEFT sided injections were done at the following 2 points. Junction of the superior articular process with left ala of the sacrum, junction of the superior articular process with the left L5 transverse process, using 0.5 mL of solution at each point. Total 1 mL of solution was injected on the left side which consists of 0.5% ropivacaine . Spinal needles were taken out and bandages were applied. Disposition. Patient tolerated the procedure well. No complication. Discharged home in stable condition
[2025-04-05 13:32] VITALS: BP 129/75; PULSE 66
--- NOTE | 2025-04-05 13:41 | FL ---
EXAMINATION TYPE: FL guided pain mgmt statistic DATE OF EXAM: 04/05/2025 1:15 PM COMPARISON: Pre Operative Images if available both CT/MRI or plain film CLINICAL INDICATION: Female, 59 years old with history of FACET BLOCK LUM; TECHNIQUE: FL guided pain mgmt statistic, multiple fluoroscopic images provided for procedure. DAP: 0.94886 mGym2 Gycm2 uGym2 cGycm2 or equivalent. FINDINGS: Fluoroscopic images during injection for pain management demonstrate multilevel degeneration changes throughout the spine. No evidence for fracture. No acute process identified. IMPRESSION: 1. No evidence for intraoperative complication. 2. Please see the operative/procedural note for further details. [facility], , 04/05/2025 1:38 PM
== END 2025-04-05 13:47 | disposition home or self-care (01) ==
LOC: ORPAIN 11:42
PROVIDERS: ATTEND Pain Medicine Interventional Pain Medicine
DX: M47.816 Spondylosis without myelopathy or radiculopathy, lumbar region (principal)
CPT/HCPCS: 64493; J2250; J2405; J3010; J2795; 99152

== ENCOUNTER → 2025-04-26 | Outpatient (CLI) | payer MEDICARE, OTHER ==
[2025-04-26 09:14] VITALS: BP 88/60; PULSE 94; RESP 18; TEMP 97.9
--- NOTE | 2025-04-26 12:30 | P.PAINPG ---
PQRS Measure Charge Sheet Comment: HISTORY OF PRESENT ILLNESS: A 59 yr old female as a referral from Dr Booker presents today w severe and chronic LBP > 1 yr secondary to L L4-L5 Foraminotomy, L5-S1 radiculopathy, BL Sacroiliitis for evaluation s/p BL MBB L5-S1 #1. Pt states she experienced 50 % pain relief x 2 hrs s/p procedure. Pt states pain level is provoked at 8 /10 in intensity, constant, localized in the lower lumbar spine, predominantly axial, stabbing in character w occasional shooting pain to the buttocks L> R. Pain is provoked by over activity. Pain is alleviated by PT x 6 wks which ended in 2023, physician guided home exercises 4-5 times weekly since Summer 2023, heat, medications, use of a cane for ambulatory assistance, repositioning and rest . Oswestry axial pain score at 30. Interventional procedures include L L4-L5 Foraminotomy, L SI x1 (02/09), BL MBB L5-S1 x1 Medications include Percocet 10/325mg, ASA REVIEW OF ORGAN SYSTEMS: CONSTITUTIONAL: No fevers or chills. No recent weight loss. NEUROLOGICAL: + numbness and tingling along the distal extremities. No seizure disorders or headaches. MUSCULOSKELETAL: + pain PSYCHIATRIC: Denies current depression or suicidal thoughts. Physical Examinations : Constitutional : Cooperative , not in acute distress . Neurologic : Cranial nerve II to XII intact. No focal neurological deficits. Psychiatric : alert & oriented x 3. Matching mood & appropriate affect. Judgment & insight intact. Musculoskeletal : Cervical Spine Motor strength in the deltoid and biceps: Normal right side. Normal Left side Motor strength biceps and the wrist extensors: Normal right side . Normal left side Motor strength in the triceps muscle: Normal right side. Normal left side Deep tendon reflexes: Normal at the biceps. Normal at Brachioradialis. Normal at triceps Vertebral body tenderness to deep palpation over Cervical facet loading test: positive bilaterally Spurling test: positive bilaterally Neck distraction test: positive bilaterally Piotr sign: positive bilaterally Lumbar spine Motor strength lower extremities ,thigh and legs 5/5 Right side , 5/5 Left side Deep tendon reflexes : Normal Knee Jerk. Normal Ankle Jerk Vertebral body tenderness over Barger Test positive Lumbar facet Loading Test: positive Right / positive Left L5-S1 Range of motion of the lumbar spine Flexion 30 degrees, extension 10 degrees Straight Leg Raise test: Left/ Right positive at degrees Gerson test: positive right / positive left. Severe tenderness over the Sacroiliac joint on the Right / Left sides Gaenslen test: positive bilaterally Seated flexion test: positive bilaterally. Sacral spine : Severe tenderness over the Sacroiliac joint: right side / left side Range of motion: Flexion of the lumbar spine <60 degrees Range of motion: Extension of the lumbar spine <20 degrees Gaenslen's Test positive L Gerson test: positive BL Thigh Thrust Test BL positive Sacral Thrust Test Imaging: MRI non contrast of the lumbar spine from 11/22/2024 reviewed Assessment/ Plan : L L4-L5 Foraminotomy, BL Sacroiliitis, L5-S1 radiculopathy Recommendation of BL SI #1. Risks, benefits of procedure discussed and patient verbalized understanding. All questions answered. I have spent greater than 30 minutes on patient care today. Dr Bacon was available by phone for the evaluation of this patient. The time was used to review the medical records including relevant urine studies and Prescription history (MAPs), review of the available imaging, evaluation and examination of the patient, coordination of care with the medical staff and if applicable referring physicians, as well as creation of the medical record PQRS Narrative: Hx Alcohol Use (MH) No Home Medications: Ambulatory Orders Aspirin [Adult Low Dose Aspirin EC] 81 mg PO DAILY 09/09/20 Cyanocobalamin [Vitamin B-12] 500 mcg PO DAILY 09/09/20 Gabapentin [Neurontin] 800 mg PO TID 09/09/20 Linaclotide [Linzess] 145 mcg PO DAILY 09/09/20 Metoprolol Tartrate [Lopressor] 75 mg PO HS 09/09/20 Multivitamins, Thera [Multivitamin (formulary)] 1 tab PO DAILY 09/09/20 Sertraline [Zoloft] 200 mg PO HS 09/09/20 Simvastatin [Zocor] 20 mg PO HS 09/09/20 tiZANidine [Zanaflex] 6 mg PO TID 09/09/20 traZODone HCL 100 mg PO HS 09/09/20 Hydrocortisone Cream [Hydrocortisone 2.5% Cream] 1 applic TOPICAL DAILY PRN 09/27/20 Ketoconazole 2% Cream [Nizoral 2%] 1 applic TOPICAL DAILY PRN 09/27/20 Metoprolol Tartrate [Lopressor] 25 mg PO DAILY 09/27/20 Triamcinolone 0.1% Ointment [Kenalog 0.1% Ointment] 1 applic TOPICAL BID PRN 09/27/20 amLODIPine [Norvasc] 2.5 mg PO DAILY 09/27/20 Lidocaine 5% Patch [Lidoderm] 2 patch TOPICAL DAILY 07/11/24 Famotidine [Pepcid] 40 mg PO DAILY 07/12/24 Sennosides/Docusate Sodium [Senna Plus 8.6-50 mg Tablet] 1 each PO DAILY PRN #40 tab 07/18/24 oxyCODONE-APAP 10-325MG [Percocet 10-325 mg] 1 tab PO Q3HR PRN 02/05/25 Cholecalciferol (Vitamin D3) [Vitamin D3 (1250 Mcg = 50,000 Iu)] 1 dose PO Q30D 04/02/25 Cholecalciferol [Vitamin D3 (125 Mcg = 5000 Iu)] 1 dose PO TH 04/02/25 Controlled Substance Measures - Controlled Substance Measures Is patient prescribed a controlled substance at discharge?: No
[2025-04-26 15:28] LABS: HCT 35.2 % (37.2-46.3); HGB 11.3 g/dL (12.0-15.0); MCH 31.0 pg (27.0-32.0); MCHC 32.1 g/dL (32.0-37.0); MCV 96.4 FL (80.0-97.0); NRBC Per 100 WBC 0 X 10*3/uL (0.00-0.01); Platelet Count 241 X 10*3/uL (140-440); RBC 3.65 X 10*6/uL (4.10-5.20); RDW 12.4 % (11.5-14.5); WBC 5.97 X 10*3/uL (4.50-10.00)
[2025-04-26 15:51] LABS: Anion Gap 11.80 mmol/L (4.00-12.00); BUN/Creat Ratio 21.00 Ratio (12.00-20.00); Blood Urea Nitrogen 21.0 mg/dL (9.0-27.0); Carbon Dioxide 26.2 mmol/L (21.6-31.8); Chloride 106 mmol/L (96-109); Glucose 135 mg/dL (70-110); Iron 74 UG/DL (50-170); Magnesium 1.8 mg/dL (1.5-2.4); Potassium 4.3 mmol/L (3.5-5.5); Sodium 144 mmol/L (135-145); Total Iron Binding Capacity 318 UG/DL (228-460); Uric Acid 5.7 mg/dL (2.9-7.7)
[2025-04-26 15:52] LABS: ALT 7 U/L (8-44); AST 22 U/L (13-35); Albumin 4.3 g/dL (3.8-4.9); Albumin/Globulin Ratio 2.05 Ratio (1.60-3.17); Alkaline Phosphatase 80 U/L (41-126); Calcium 8.9 mg/dL (8.7-10.3); Ferritin 130.0 ng/mL (10.0-291.0); Globulin 2.1 g/dL (1.6-3.3); Total Protein 6.4 g/dL (6.2-8.2)
[2025-04-26 16:39] LABS: Bacteria,Urine None Seen (None Seen)
[2025-04-26 17:08] LABS: Bilirubin,Urine Small (Negative); Blood,Urine Negative (Negative); Color,Urine Dark Yellow (Yellow); Ketones,Urine Trace (Negative); Nitrite,Urine Negative (Negative); PH, Urine 5.5; Specific Gravity,Urine >1.035 (1.001-1.030); Urobilinogen,Urine 1.0
== END ==
LOC: PNWHC3 08:55
PROVIDERS: ATTEND Specialist
DX: E55.9 Vitamin D deficiency, unspecified (principal); N18.31 Chronic kidney disease, stage 3a; D63.1 Anemia in chronic kidney disease; N39.0 Urinary tract infection, site not specified; N25.81 Secondary hyperparathyroidism of renal origin; M10.9 Gout, unspecified; M46.1 Sacroiliitis, not elsewhere classified; M54.17 Radiculopathy, lumbosacral region; M96.1 Postlaminectomy syndrome, not elsewhere classified; R80.9 Proteinuria, unspecified; Z88.0 Allergy status to penicillin; Z88.2 Allergy status to sulfonamides; Z91.041 Radiographic dye allergy status; Z91.013 Allergy to seafood
CPT/HCPCS: 80053; 81001; 82043; 82306; 82570; 82728; 83540; 83550; 83735; 83970; 84100; 84550; 85027; 99211